=== PATIENT | female | born 1970 | race Caucasian/White ===

== ENCOUNTER 2022-04-19 11:23 | Emergency (ER) | payer OTHER, SELFPAY ==
[2022-04-19] VITALS (10 sets, daily range): BP systolic 123–150; BP diastolic 65–76; PULSE 70–89; RESP 16–24; TEMP 36.3; O2SAT 95–100; BMI 31.3
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
--- NOTE | 2022-04-19 11:51 | EKG12_ITS ---
Test Reason : Blood Pressure : / mmHG Vent. Rate : 063 BPM Atrial Rate : 063 BPM P-R Int : 164 ms QRS Dur : 094 ms QT Int : 408 ms P-R-T Axes : 014 067 017 degrees QTc Int : 417 ms Normal sinus rhythm Nonspecific ST abnormality Abnormal ECG Confirmed by JOANNE PRASAD, ALPHONSO ([id number]), story editor NATO WOODRUFF ([id number]) on 04/20/2022 9:50:19 AM Referred By: Confirmed By:ALPHONSO RUBIO MD
[2022-04-19] MEDS: LORazepam 2 MG/ML Syringe 0.5 MG IV (11:59)
[2022-04-19 12:08] LABS: Absolute Lymphocyte Count 1.11 X10^3/uL (0.83-4.51); Absolute Neutrophil Count 5.9 X10^3/uL (2.0-7.7); Basophil# 0.03 X10^3/uL; Basophil% 0.4 % (0-1); Eosinophil# 0.04 X10^3/uL; Eosinophils% 0.5 % (0-5); Hematocrit 38.7 % (37-47); Hemoglobin 13.7 g/dL (12.0-15.0); Lymphocyte # 1.11 X10^3/ul (0.83-4.51); Lymphocyte % 15.1 % (19-41); Mean Corp Hgb Conc 35.4 g/dL (32-36); Mean Corpuscular Hgb 30.9 pg (27.0-32.0); Mean Corpuscular Volume 87.2 fL (81-99); Mean Platelet Vol. 9.9 fl (6.2-12.0); Monocyte# 0.31 X10^3/uL; Monocyte% 4.2 % (0-10); NRBC Flagged by Analyzer 0 % (0-5); Neutrophil # 5.86 X10^3/uL (2.7-7.7); Neutrophil % 79.5 % (47-70); Platelet Count 213 K/mm3 (150-450); RBC Distribution Width CV 14.2 % (11.6-14.6); RBC Distribution Width SD 45.2 fl (35.1-43.9); Red Blood Count 4.44 M/mm3 (4.2-5.4); White Blood Count 7.4 K/mm3 (4.4-11.0)
[2022-04-19 12:18] LABS: Internal QC Validated? YES +Cl - CLEAR BKGD; Pregnancy, Serum, hCG Quali. NEGATIVE Negative
[2022-04-19 12:19] LABS: Amphetamine Urine VISTA NEGATIVE (<1000 ng/mL); Barbiturate Urine VISTA NEGATIVE (< 200 ng/mL); Benzodiazepine Urine VISTA NEGATIVE (< 200 ng/mL); Cocaine Urine VISTA NEGATIVE (< 300 ng/mL); Ecstacy Urine VISTA NEGATIVE (< 500 ng/mL); Methadone Urine VISTA NEGATIVE (< 300 ng/mL); PCP Urine VISTA NEGATIVE (< 25 ng/mL); THC Urine VISTA NEGATIVE (< 50 ng/mL); Vista UDS pH Range 7
[2022-04-19 12:26] LABS: Anion Gap 9 (5-15); BUN 13 mg/dL (7-18); BUN/Creat Ratio 13.4 RATIO (10-20); Calcium,Total 9.6 mg/dL (8.5-10.1); Chloride 111 mmol/L (98-107); Creatinine, Serum 0.97 mg/dL (0.55-1.02); EST Glomerular Filtration Rate 65 mL/min (>60); Est Glom Filt Rate - Afr Amer 78 mL/min (>60); Estimated Creatinine Clearance 60.58 ml/min; Glucose 107 mg/dL (74-106); Potassium 3.2 mmol/L (3.5-5.1); Sodium Level 142 mmol/L (136-145); Troponin-I HS 5 pg/mL (3.0-54.0)
[2022-04-19 12:38] LABS: Alcohol, Blood (Medical)-Serum < 3.0 mg/dL
[2022-04-19] MEDS: Potassium Chloride Oral Tablet 20 MEQ 40 MEQ PO (16:35)
[2022-04-20] VITALS (10 sets, daily range): BP systolic 117–148; BP diastolic 68–78; PULSE 65–80; RESP 14–23; O2SAT 97–100
--- NOTE | 2022-04-20 00:44 | NURSING ---
INA ALEJANDRO CALLED STATING PATIENT IS DENIED DUE TO NOT MEETING CRITERIA
--- NOTE | 2022-04-20 12:06 | ED.RN ---
gave pt her Zoloft last night @ [facility].
--- NOTE | 2022-04-20 14:03 | CM.ED ---
Addendum entered by Jennie Bustamante 04/20/22 15:12: Madhuri advised if counseling center pays for transport. KAREN advised that the transport is billed to [facility]. Of note, when KAREN spoke to Gisselle from [facility] she said that the agreement with the [facility] had been secured. No other financial issues or concerns pending. Jennie Bustamante SOPHIE DIAZ Original Note: KAREN Note KAREN called the Counseling center and spoke to Jamila Marino said that patient has been denied by [facility], [facility]illa and [facility]. Jamila said that she will talk to Nicky about patient. Patient is [facility] [place] patient. SW updated patient and . Advised her that Counseling Center is working on placement. inquired about leaving and this specifications writer explained that patient needs treatment. Patient has been at [facility] in the past. Went to counseling last week for a new counselor in [place] but can't recall the counselor's name. said that patient is doing alot better today. said that patient has slept, ate and this specifications writer noted that patient was responding to this specifications writer's questions and talking but very quietly. Nicky called this specifications writer. She said that she is updating the assessment for patient. KAREN inquired about patient going to [facility]. Nicky will call Sergio at [facility]. Nicky said that she met with the crisis counselor Helen and they updated the initial assessment. SW received call from Nicky. [facility] has no places in their residential unit for 2 weeks. Thus, Jamila from [facility] will send out referrals for patient. Nicky said that Sergio felt patient needed to be stabilized. Jamila advised that she Ezequiel is interested in the patient but needs SSN. KAREN went to get SSN but patient said that she had already given it to someone. Madhuri, ED company secretary, advised that patient gave her the SSN. KAREN received call from Gisselle at [facility]. Patient accepted. Patient is going to Adult Unit Room [facility] [address]. Accepting is Kayla and RN to RN is [phone]. Gisselle said that the RN can advise of the patient's ETA when the RN calls for report. Gisselle said that there is no visitation. Patient can bring 2-3 outfits and no pins. Gisselle said that patient could sign a voluntary. KAREN updated Florencia LIND. Florencia completed covid screen. KAREN met with patient and her and updated them. Patient signed voluntary (SW had read the voluntary to her). The said that all of the pins had been taken out of her covering and clothes. advised patient is wearing a gown and has a dress. was advised of no visitation. SW gave the brochure on [facility] with picture and numbers and also the number for Sergio at [facility]. Karen updated Madhuri company secretary that patient has been accepted at [facility]. updated. Plan: [facility] Jennie DIAZ
--- NOTE | 2022-04-20 14:43 | NURSING ---
CALLED [facility], ETA IS 30 MIN
== END 2022-04-20 15:15 ==
PROVIDERS: Emergency Provider Student in an Organized Health Care Education/Training Program; PCP Family Medicine; Visit Provider Student in an Organized Health Care Education/Training Program
DX: F23 Brief psychotic disorder (principal); F41.9 Anxiety disorder, unspecified
CPT/HCPCS: 80048; 80307; 82077; 84484; 84703; 85025; 87811; 93005; 96374; 99285; A4216

== ENCOUNTER 2025-01-22 12:28 | Emergency (ER) | payer OTHER, SELFPAY ==
[2025-01-22 12:30] VITALS: BP 135/67; PULSE 84; RESP 18; TEMP 36.9; O2SAT 100; BMI 37.5
[2025-01-22 13:10] VITALS: O2SAT 100
--- NOTE | 2025-01-22 13:10 | EKG12_ITS ---
Test Reason : Blood Pressure : */* mmHG Vent. Rate : 84 BPM Atrial Rate : 84 BPM P-R Int : 162 ms QRS Dur : 94 ms QT Int : 384 ms P-R-T Axes : 6 54 0 degrees QTcB Int : 453 ms Normal sinus rhythm Nonspecific ST abnormality Abnormal ECG Confirmed by Abel Matthews ([id number]), assistant production editor NATO WOODRUFF ([id number]) on 01/24/2025 6:10:58 AM Referred By: Confirmed By: Abel Matthews
--- NOTE | 2025-01-22 13:10 | RAD_ITS ---
PROCEDURE: CHEST 1 VIEW (PORTABLE) 01/22/2025 REASON FOR EXAM: CHEST PAIN TECHNIQUE: Frontal view of the chest. COMPARISON: None FINDINGS: Hardware: EKG electrodes are seen. Prior fusion in the lower cervical spine. Heart: Cardiac and mediastinal contours are stable. Lungs: The lungs are clear. Bones: Degenerative changes are identified within the thoracic spine. Other: RAD/Chest 1 View (Portable) IMPRESSION: No Acute Findings. Reading Location: [place] [id number]
--- NOTE | 2025-01-22 13:16 | ED.VIS.CHEST ---
HPI History of Present Illness Chief Complaint: Chest Pain Informant: patient and spouse/S.O. Onset/Context/Timing Onset: Today and Hours Activity at onset: gradual Timing: Continuous Quality: Positive for Aching and Pain Location: Left Chest Current Severity: Mild Maximum Severity: Mild Worsened By: Exertion Relieved By: Nothing Associated Symptoms: Positive for Dyspnea and Lightheadedness; Negative for Nausea, Vomiting, Cough, Fever, Acid Reflux or Palpitations Narrative Narrative: 54-year-old female history depression. No cardiac history. Was picking strawberries today and had chest pain. States this has been going on for the last hour. States she has had increased fatigue. Pain goes into her left arm. She has had some mild shortness of breath. No history of DVT or PE. No recent travel surgery immobilization. No calf pain or swelling. No hemoptysis. No significant family history of cardiac disease other than her mom at 78. Patient is had no prior cardiac testing. Prior Similar Symptoms: No Recent Illness/Hospitalization: No CVD Risk Factors: Negative for Hypertension, Diabetes, Hypercholesterolemia, Family History 1' </=55 or Smoking PE Risk Factors: Negative for Recent Travel/Surgery, Recent Immobilization, Prior DVT or PE, Cancer or OCP + Smoking + >/=35 TAD Risk Factors: Negative for Marfan's Syndrome PFSH PFS Home Medications ?Medication ?Instructions ?Recorded ?Last Taken ?Type sertraline 50 mg tablet 50 mg PO QHS 04/19/22 Unknown History Allergy/AdvReac Type Severity Reaction Status Date / Time No Known Allergies Allergy Verified 01/22/25 12:33 Surgical History Previous back surgery Social History Smoking Status: Never smoker ROS ROS ED ROS Narrative Chest discomfort today picking strawberries. Dyspneic. Constitutional Constitutional ED: Denies chills or fever(s) Eyes Eyes: Reports none ENT ENT ED: Denies ear pain Cardiovascular Cardiovascular: Reports as per HPI and chest pain; Denies palpitations or racing heartbeat Respiratory/Chest Respiratory/Chest: Reports dyspnea Gastrointestinal Gastrointestinal: Denies abdominal pain Genitourinary Genitourinary ED: Denies dysuria or hematuria Musculoskeletal Musculoskeletal: Denies arthralgias Integumentary Denies abscess or Abrasions Neurologic Neurologic: Denies headache(s) Psychiatric Psychiatric: Denies anxiety or depression Endocrine Endocrinology: Denies cold intolerance Hematologic/Lymphatic Hematologic/Lymphatic: Denies easy bleeding, easy bruising or lymphadenopathy Allergic/Immunologic Allergic/Immunologic ED: Denies mouth swelling, tongue swelling or urticaria EXAM Physical Exam Narrative Exam Narrative: 54-year-old female sitting upright in bed. Vital signs stable afebrile. Pulse ox 100% on room air no hypoxia. at bedside. H EENT exam pupils round react light. Moist mucous membranes. No trauma. Neck nontender no JVD. No lymphadenopathy. Lungs clear to auscultation bilaterally. Heart regular rhythm no murmur. Chest wall and ribs are nontender. Heart rate about 80. Abdomen soft nondistended normal bowel sounds without peritoneal signs. She has mild left upper quadrant tenderness. No rebound guarding rigidity. No hernia or mass. Right upper quadrant unremarkable. Soft. Positive bowel sounds. Moving all 4 extremities. 5-5 cooker process cheese strength. Dorsi plantarflexion intact. Calves are nontender without edema or cords. Equal symmetric radial pulses. Back nontender. Neurologically patient awake alert. Answering questions following commands. No focal motor deficits. Const Vital Signs: 01/22/25 12:30 01/22/25 13:10 01/22/25 13:29 Temperature 98.4 F Temperature Source Oral Pulse Rate 84 71 Respiratory Rate 18 15 Blood Pressure 135/67 H Blood Pressure Mean 89 Pulse Ox 100 100 100 Oxygen Delivery Method Room Air Room Air Room Air 01/22/25 14:00 01/22/25 15:00 Temperature Temperature Source Pulse Rate 69 74 Respiratory Rate 13 15 Blood Pressure Blood Pressure Mean Pulse Ox 98 99 Oxygen Delivery Method Room Air Room Air Positive well nourished and well developed; Negative for cachectic, contractures or unkempt General Appearance ED: well developed and NAD; Negative for unkempt, cachectic, contractures or pallor Nutritional Appearance: Negative for cachectic HEENT Reports moist mucous membranes normocephalic and atraumatic; Negative for trauma or tenderness Eyes EOMs intact bilaterally General Eye ED: Negative for pale conjunctiva or scleral icterus Neck no lymphadenopathy, supple and no JVD General: Negative for tenderness Chest Wall inspection of chest normal and palpation of chest normal Chest: Negative for tenderness Resp normal respiratory effort and clear to auscultation bilaterally Effort and Inspection: Negative for respiratory distress Auscultation: Negative for rales, rhonchi, wheezes or diminished lung sounds Cardio regular rate, regular rhythm, S1 normal heart sound, S2 normal heart sound and no murmurs Peripheral Pulses: pulses 2+ throughout GI normal to inspection, nondistended, normoactive bowel sounds, soft to palpation, non-tender, non-distended and no masses Back/Spine no CVA tenderness and no thoracic nor lumbar tenderness General Back: Negative for CVA tenderness Cervical Spine: Negative for cervical spine tenderness Extremity normal to inspection General Extremety ED: Negative for edema, pulses abnormal or tenderness General Extremity: Negative for edema or pulses abnormal Neuro oriented x3 and CN's II-XII intact bilaterally Sensorium / Orientation: awake, alert, oriented to person, oriented to place and oriented to time; Negative for confused, lethargic or stuporous Motor Exam: strength 5/5 throughout; Negative for general weakness or strength abnormal Psych mental status grossly normal Appearance: Negative for unkempt Attitude: No agitated Mood & Affect: Negative for depressed, anxious or tearful Skin no rashes or lesions noted and no wounds General Skin Exam: Negative for jaundice or pallor Rashes: No rashes noted Trauma: Negative for abrasion, laceration or puncture MDM MDM MDM Narrative Medical decision making narrative: 54-year-old female with chest discomfort today while picking strawberries. No cardiac history. No DVT or PE history or risk factors. No prior cardiac workup. She is never had a stress test or heart cath. She undergo a cardiac workup today. Repeat exam patient is doing well at 3:33 PM. 2-hour troponin returned it was less than 6. The initial was 6. Patient be discharged home with outpatient follow-up for further evaluation. The shoulder pain she is having is reproducible and appears to be musculoskeletal. History & Record Review Discussion w/independent historian: Patient Lab Data Attestation: I reviewed the patient's lab results. Lab results narrative: CBC shows a white count 8.9. H&H 12 and 36. Platelets 256. Electrolytes show sodium 138 gap 13. Normal BUN of 9 creatinine 0.8. Glucose 101. Liver enzymes normal. Lipase 23. Initial troponin 6. 2-hour troponin less than 6. Labs: Laboratory Results - last 24 hr 01/22/25 01/22/25 13:15 15:09 WBC 8.9 RBC 4.15 L Hgb 12.4 Hct 36.3 L MCV 87.5 MCH 29.9 MCHC 34.2 RDW Std Deviation 43.4 RDW Coeff of Karie 13.6 Plt Count 256 MPV 9.5 Immature Gran % (Auto) 0.300 Neut % (Auto) 75.8 H Lymph % (Auto) 17.0 L Saunders % (Auto) 5.8 Eos % (Auto) 0.9 Baso % (Auto) 0.2 Absolute Neuts (auto) 6.8 Absolute Lymphs (auto) 1.52 Nucleated RBC % 0 Sodium 138 Potassium 3.4 Chloride 103 Carbon Dioxide 22.7 Anion Gap 13 BUN 9 Creatinine 0.85 Estim Creat Clear Calc 88.61 Est GFR (MDRD) Non-Af 82 BUN/Creatinine Ratio 10.6 Glucose 101 H Calcium 9.2 Total Bilirubin 0.49 Direct Bilirubin 0.20 AST 15 ALT 9 Alkaline Phosphatase 63 Troponin T High Sens 6 Troponin T Hi Sens 2 Hr < 6 Total Protein 7.3 Albumin 3.7 Globulin 3.6 Lipase 23 Radiography Chest X-Ray - ED: 1 View, Read by ED Physician, Read by Radiologist, Normal, Heart, Lungs, Mediastinum, Bony Structures, No Acute Disease and Chronic Changes Diagnostic Testing: Clinical Impression(s) from Imaging Studies Chest X-Ray 01/22/25 13:10 IMPRESSION: No Acute Findings. Reading Location: [place] [id number] Chest x-ray, portable, single view, interpreted by myself and radiologist shows no acute abnormality. Normal cardiac silhouette. Normal mediastinum. Normal lung handy. No acute process. Rhythm Strip Rhythm Strip: Sinus Rhythm Rate: 84 Ectopy: None EKG Initial EKG: Attestation: I personally reviewed and interpreted this EKG as follows: Interpretation: Sinus Rhythm Comments: Normal sinus rhythm rate 84. Nonspecific ST depression in V4 5 and 6. However that is unchanged from prior EKG from April 2022 Prior EKG tracings: available for review Prior: Unchanged Discharge Plan Triage Chief Complaint: Chest Pain ED Provider: Ramón Lee Dx/Rx/DC Orders Clinical Impression: Atypical chest pain Instructions: ED Chest Pain, Uncertain Cause Prescriptions: No Action sertraline 50 mg Tablet 50 mg PO QHS Primary Care Provider: Agatha Avendano NP Referrals: Agatha Avendano NP, [facility] [Primary Care Provider] - As soon as possible Activity Restrictions/Additional Instructions: Follow-up with your primary care provider. Discuss with them getting an outpatient stress test to further evaluate your heart. Your labs today were normal. Print Language: Kazakh Disposition Disposition: Home, Self Care
[2025-01-22 13:26] LABS: Absolute Lymphocyte Count 1.52 X10^3/uL (0.83-4.51); Absolute Neutrophil Count 6.8 X10^3/uL (2.0-7.7); Basophil# 0.02 X10^3/uL; Basophil% 0.2 % (0-1); Eosinophil# 0.08 X10^3/uL; Eosinophils% 0.9 % (0-5); Hematocrit 36.3 % (37-47); Hemoglobin 12.4 g/dL (12.0-15.0); Lymphocyte # 1.52 X10^3/ul (0.83-4.51); Mean Corp Hgb Conc 34.2 g/dL (32-36); Mean Corpuscular Hgb 29.9 pg (27.0-32.0); Mean Corpuscular Volume 87.5 fL (81-99); Mean Platelet Vol. 9.5 fl (6.2-12.0); Monocyte# 0.52 X10^3/uL; Monocyte% 5.8 % (0-10); NRBC Flagged by Analyzer 0 % (0-5); Neutrophil # 6.75 X10^3/uL (2.7-7.7); Neutrophil % 75.8 % (47-70); Platelet Count 256 K/mm3 (150-450); RBC Distribution Width CV 13.6 % (11.6-14.6); RBC Distribution Width SD 43.4 fl (35.1-43.9); Red Blood Count 4.15 M/mm3 (4.2-5.4); White Blood Count 8.9 K/mm3 (4.4-11.0)
[2025-01-22 13:29] VITALS: PULSE 71; RESP 15; O2SAT 100
[2025-01-22 13:58] LABS: AST(SGOT) 15 U/L (<=31); Alanine Aminotransfer ALT/SGPT 9 U/L (<=34); Albumin, Serum 3.7 g/dL (3.5-5.0); Alkaline Phosphatase 63 U/L (35-104); Anion Gap 13 (5-15); BUN 9 mg/dL (4-19); BUN/Creat Ratio 10.6 RATIO (10-20); Calcium,Total 9.2 mg/dL (7.6-11.0); Carbon Dioxide 22.7 mmol/L (21.0-32.0); Chloride 103 mmol/L (98-108); Creatinine, Serum 0.85 mg/dL (0.70-1.20); EST Glomerular Filtration Rate 82 (>60); Estimated Creatinine Clearance 88.61 ml/min (50-250); Globulin 3.6 g/dL (2.2-4.2); Glucose 101 mg/dL (70-99); Lipase 23 U/L (13-75); Potassium 3.4 mmol/L (3.3-5.1); Protein, Total 7.3 g/dL (5.9-8.4); Sodium Level 138 mmol/L (133-145); Total Bilirubin 0.49 mg/dL (0.00-1.30); Troponin T High Sensitivity 6 ng/L (<=14)
[2025-01-22 14:00] VITALS: PULSE 69; RESP 13; O2SAT 98
[2025-01-22 15:00] VITALS: PULSE 74; RESP 15; O2SAT 99
[2025-01-22 15:40] LABS: Troponin T High Sens 2 HR < 6 ng/L (<=14)
[2025-01-22 15:53] VITALS: BP 135/67; PULSE 74; RESP 15; TEMP 36.9; O2SAT 99
--- OUTSIDE RECORDS SUMMARY | 2025-01-22 23:43 | XMS RPT_ITS | CCD ---
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 [facility] Work Phone: Cocaine Ql (U) Negative < 300 ng/mL [facility] Work Phone: Opiates Ql (U) Negative < 300 ng/mL [facility] Work Phone: Laboratory - Hematology and Cell countson 04-19-2022 Erythrocyte distribution width (RBC) [Entitic vol] 45.2 fL 35.1-43.9 [facility] Work Phone: Immature granulocytes/100 WBC (Bld) 0.300 % 0.0-0.9 [facility] Work Phone: Comment on above: IG% - Immature Granu locytes (promyelocytes, myelocytes and metamyelocytes) > 1% indicates that a LEFT SHIFT is Present. Nucleated RBC/100 WBC (Bld) [Ratio] 0 % 0-5 [facility] Work Phone: MCHC [Mass/volume] by Automa festus counton 04-19-2022 MCHC (RBC) [Mass/Vol] 35.4 g/dL Normal 32-36 [facility] Work Phone: Comment on above: Performed By: #### L 500.2500, L700.6800, L501.4020, L501.9100, L505.5000, L100.0100 #### [facility] [address] [place], [place], [id number] No Panel Informationon 04-19 Estimated Creatinine Clearance Calc 60.58 ml/min [facility] Work Phone: Estimated GFR (MDRD) Amer 78 mL/min >60 [facility] Work Phone: Comment on above: GFR Calc Estimated GFR (MDRD) Non-Af Amer 65 mL/min >60 [facility] Work Phone: Comment on above: Non- GFR Calc Ethyl Alcohol Level < 3.0 mg/dL [facility] Work Phone: Comment on above: The serum:whole bloo d ethanol ratio is approximately 1.14and varies slightly with hematocrit. Medical Alcohol reference interval and critical value innon-tolerant individuals; 50 - 100 Impairment 100 Intoxication 100 - 250 Severe Poisoning 250 - 400 Deep/possible fatal coma Troponin I High Sensitivity 5 pg/mL 3.0-54.0 [facility] Work Phone: Comment on above: Please Note: New [place] t Units and Gender Specific Reference Ranges. For more information see Policy Stat Procedure [place] High Sensitivity Troponin (TNIH) and attachments. MDMA (Ecstasy) Screen Negative < 500 ng/mL [facility] Work Phone: Urine Barbiturates Screen Negative < 200 ng/mL [facility] Work Phone: Urine Drug Screen Comment [facility] Work Phone: Comment on above: CONFIRMATORY TESTING FOR ALL POSITIVE URINE DRUG SCREENRESULTS WILL ONLY BE SENT OUT UPON PHYSICIAN ORDER. VISTA Urine Drug Screen methods provide only preliminaryanalytical test results. A more specific alternate chemicalmethod must be used in order to obtain a confirmedanalytical result. Gas chromatography/mass spectrometery(GC/MS) is the preferred confirmatory method. Clinicalconsideration and professional judgement should be appliedto any drug of abuse test result, particularly whenpreliminary positive results are used. URINE TCA TESTING MUST BE ORDERED SEPARATELY. USE TESTMNEMONIC: [facility] Urine Methadone Screen Negative < 300 ng/mL [facility] Work Phone: Platelets bldon 04-19-2022 Platelets (Bld) [#/Vol] 213 10*3/uL Normal 150-450 [facility] Work Phone: Comment on above: Performed By: #### L 500.2500, L700.6800, L501.4020, L501.9100, L505.5000, L100.0100 #### [facility] [address] [place], [address] ,Serum,hCG Quali.on 04-19-2022 HCG, SERUM QUAL Negative Normal [facility] Comment on above: Performed By: #### L 500.2500, L700.6800, L501.4020, L501.9100, L505.5000, L100.0100 #### [facility] [address] [place], [address] Serum or plasma calcium shelly urement (mass/volume)on 04-19-2022 Calcium [Mass/Vol] 9.6 mg/dL 8.5-10.1 [facility] Work Phone: Serum or plasma creatinine m easurement (mass/volume)on 04-19-2022 Creatinine [Mass/Vol] 0.97 mg/dL Normal 0.55-1.02 [facility] Work Phone: Comment on above: The validity of the calculated GFR & GFRAA in patients over 70 years has not been determined. Clinical correlation is essential. Order Comment: 'TROP ' Serial specimen #1, #2 or #3: 1 Result Comment: The validity of the calculated GFR GFRAA in patients over 70 years has not been determined. Clinical correlation is essential. Performed By: #### L 500.2500, L700.6800, L501.4020, L501.9100, L505.5000, L100.0100 #### [facility] [address] [place], [address] Serum or plasma urea nitroge n measurement (mass/volume)on 04-19-2022 Urea nitrogen [Mass/Vol] 13 mg/dL Normal 7-18 [facility] Work Phone: Comment on above: Order Comment: 'TROP ' Serial specimen #1, #2 or #3: 1 Performed By: #### L 500.2500, L700.6800, L501.4020, L501.9100, L505.5000, L100.0100 #### [facility] [address] [place], [address] Thin prep Papanicolaou smear with manual screeningon 04-19-2022 Thin prep Papanicolaou smear with manual screening 9 5-15 [facility] Work Phone: Urine Drug Screen (VISTA)on 04-19-2022 AMPHETAMINES Negative Normal <1000 ng/mL [facility] Comment on above: Performed By: #### L 500.2500, L700.6800, L501.4020, L501.9100, L505.5000, L100.0100 #### [facility] [address] [place], [facility] BARBITIURATES Negative Normal < 200 ng/mL [facility] Comment on above: Performed By: #### L 500.2500, L700.6800, L501.4020, L501.9100, L505.5000, L100.0100 #### [facility] [address] [place] [address] BENZODIAZIPINE Negative Normal < 200 ng/mL [facility] Comment on above: Performed By: #### L 500.2500, L700.6800, L501.4020, L501.9100, L505.5000, L100.0100 #### [facility] [address] [place], [place], [facility] COCAINE Negative Normal < 300 ng/mL [facility] Comment on above: Performed By: #### L 500.2500, L700.6800, L501.4020, L501.9100, L505.5000, L100.0100 #### [facility] [address] [place], [facility] ECSTACY Negative Normal < 500 ng/mL [facility] Comment on above: Performed By: #### L 500.2500, L700.6800, L501.4020, L501.9100, L505.5000, L100.0100 #### [facility] [address] [place] [address] METHADONE Negative Normal < 300 ng/mL [facility] Comment on above: Performed By: #### L 500.2500, L700.6800, L501.4020, L501.9100, L505.5000, L100.0100 #### [facility] [address] [place] [address] OPIATES Negative Normal < 300 ng/mL [facility] Comment on above: Performed By: #### L 500.2500, L700.6800, L501.4020, L501.9100, L505.5000, L100.0100 #### [facility] [address] [place], [address] PCP Negative Normal < 25 ng/mL [facility] Comment on above: Performed By: #### L 500.2500, L700.6800, L501.4020, L501.9100, L505.5000, L100.0100 #### [facility] [address] [place], [address] THC Negative Normal < 50 ng/mL [facility] Comment on above: Performed By: #### L 500.2500, L700.6800, L501.4020, L501.9100, L505.5000, L100.0100 #### [facility] [address] [place], [address] VISTA UDS PH 7 Normal [facility] Comment on above: Performed By: #### L 500.2500, L700.6800, L501.4020, L501.9100, L505.5000, L100.0100 #### [facility] [address] [place], [address] Urine phencyclidine (PCP) de tectionon 04-19-2022 Phencyclidine Ql (U) Negative < 25 ng/mL [facility] Work Phone: Internal Med Progress Noteon 07-23-2020 Internal Med Progress Note [facility] Patient: JAVAD MARTINEZ [address] [place] [id number] MR#: [id number] PROGRESS NOTE - Internal Medicine : 74 Service Date: 07/23/20 0744 Assessment/Plan-Internal Med Be sure to note changes Be sure to note changes Electronically Signed eSign Date and Time Jorje Noyola RES Normal [facility] Anesthesia Noteon 07-22-2020 Anesthesia Note [facility] Patient: JAVAD MARTINEZ [address] [place], [place] [id number] MR#: [id number] ANESTHESIA NOTE : Service Date: 07/22/20757 Post-anesthesia Note Note Patient assessed post operatively for the following: [x ] Respiratory function, including respiratory rate, airway patency and oxygen saturation [x ] Cardiovascular function, including pulse rate and blood pressure [x ] Mental status [x ] Temperature [x ] Pain [x ] Nausea and vomiting [x ] Postoperative hydration [x ] No Visual Changes Due to the following condition(s) additional monitoring may be necessary: [ ] [x ] No apparent anesthesia complications noted. [x ] Status as per pre-op Electronically Signed eSign Date and Time Rosetta Dickey 07/22/20 0759 Yelena Jimenez MD Normal [facility] BASIC MET PANELon 07-22-2020 Anion gap [Moles/Vol] 12 mmol/L Normal 6-18 [facility] Comment on above: Performed By: #### L 500.16161, L500.73015 #### Test performed at: [address] [address] Calcium [Mass/Vol] 9.1 mg/dL Normal 8.5-10.1 [facility] Comment on above: Performed By: #### L 500.38151, L500.67524 #### Test performed at: [address] [address] Chloride [Moles/Vol] 107 mmol/L Normal 98-107 [facility] Comment on above: Performed By: #### L 500.57540, L500.60248 #### Test performed at: [place] [id number] CO2 [Moles/Vol] 26 mmol/L Normal 21-32 [facility] Comment on above: Performed By: #### L 500.43480, L500.71665 #### Test performed at: [address] [address] Creatinine [Mass/Vol] 0.925 mg/dL Normal 0.550-1.020 [facility] Comment on above: Performed By: #### L 500.98455, L500.65971 #### Test performed at: [address] [address] Glucose [Mass/Vol] 142 mg/dL High 70-99 [facility] Comment on above: Result Comment: Fast ing GLUCOSE reference range has been updated per (ADA) [place] [employer]'s recommendation. 11/07/2018 Performed By: #### L 500.72654, L500.63531 #### Test performed at: [address] [address] OSM 293 mosm/kg Normal 270-300 [facility] Comment on above: Performed By: #### L 500.49238, L500.38614 #### Test performed at: [address] [address] Potassium [Moles/Vol] 3.8 mmol/L Normal 3.5-5.1 [facility] Comment on above: Performed By: #### L 500.00688, L500.30702 #### Test performed at: [address] [address] Sodium [Moles/Vol] 141 mmol/L Normal 136-145 [facility] Comment on above: Performed By: #### L 500.75785, L500.51708 #### Test performed at: [address] [address] Urea nitrogen [Mass/Vol] 9 mg/dL Normal 7-18 [facility] Comment on above: Performed By: #### L 500.69217, L500.90383 #### Test performed at: [address] [address] CBC W/DIFFon 07-22-2020 BASO ABS 0.0 K/uL Normal 0.0-0.2 [facility] Comment on above: Performed By: #### L 200.17245 #### Test performed at: [address] [address] Basophils/100 WBC (Bld) 0.1 % Normal [facility] Comment on above: Performed By: #### L 200.66832 #### Test performed at: [address] [address] EOS ABS 0.0 K/uL Normal 0.0-0.5 [facility] Comment on above: Performed By: #### L 200.36251 #### Test performed at: [address] [address] Eosinophils/100 WBC (Bld) 0.0 % Normal [facility] Comment on above: Performed By: #### L 200.92314 #### Test performed at: [address] [address] Erythrocyte distribution width (RBC) [Ratio] 13.5 % Normal 11.5-14.5 [facility] Comment on above: Performed By: #### L 200.05714 #### Test performed at: [address] [address] Hematocrit (Bld) [Volume fraction] 38.6 % Normal 36.0-48.0 [facility] Comment on above: Performed By: #### L 200.66216 #### Test performed at: [address] [address] Hemoglobin (Bld) [Mass/Vol] 13.0 g/dL Normal 12.0-15.0 [facility] Comment on above: Performed By: #### L 200.43376 #### Test performed at: [address] [address] IG % 0.6 % Normal [facility] Comment on above: Performed By: #### L 200.60121 #### Test performed at: [address] [address] IG ABS 0.11 K/uL High 0-0.05 [facility] Comment on above: Performed By: #### L 200.47006 #### Test performed at: [address] [address] Lymphocytes (Bld) [#/Vol] 1.3 10*3/uL Normal 1.2-3.5 [facility] Comment on above: Performed By: #### L 200.06122 #### Test performed at: [place] [id number] Lymphocytes/100 WBC (Bld) 6.9 % Normal [facility] Comment on above: Performed By: #### L 200.58107 #### Test performed at: [address] [address] MCH (RBC) [Entitic mass] 30.1 pg Normal 25.4-34.6 [facility] Comment on above: Performed By: #### L 200.23337 #### Test performed at: [address] [address] MCHC (RBC) [Mass/Vol] 33.7 g/dL Normal 31.5-36.5 [facility] Comment on above: Performed By: #### L 200.41598 #### Test performed at: [address] [address] MCV (RBC) [Entitic vol] 89.4 fL Normal 79.0-98.0 [facility] Comment on above: Performed By: #### L 200.67316 #### Test performed at: [address] [address] MONO ABS 0.5 K/uL Normal 0.0-1.0 [facility] Comment on above: Performed By: #### L 200.77679 #### Test performed at: [place] [id number] Monocytes/100 WBC (Bld) 2.5 % Normal [facility] Comment on above: Performed By: #### L 200.19816 #### Test performed at: [place] [address] NEUTROPHIL ABS 16.3 K/uL High 1.4-6.6 [facility] Comment on above: Performed By: #### L 200.50787 #### Test performed at: [place] [id number] Neutrophils/100 WBC (Bld) 89.9 % Normal [facility] Comment on above: Performed By: #### L 200.95048 #### Test performed at: [place] [id number] NRBC # 0.000 K/uL Normal 0-0.012 [facility] Comment on above: Performed By: #### L 200.95745 #### Test performed at: [address] [address] NRBC % 0.0 /100 WBC Normal 0-0.2 [facility] Comment on above: Performed By: #### L 200.01540 #### Test performed at: [address] [address] Platelet mean volume (Bld) [Entitic vol] 9.3 fL Normal 8.7-12.4 [facility] Comment on above: Performed By: #### L 200.27171 #### Test performed at: [address] [address] Platelets (Bld) [#/Vol] 266 10*3/uL Normal 140-440 [facility] Comment on above: Performed By: #### L 200.68124 #### Test performed at: [address] [address] RBC (Bld) [#/Vol] 4.32 10*6/uL Normal 3.5-5.5 [facility] Comment on above: Performed By: #### L 200.00152 #### Test performed at: [place] [id number] WBC (Bld) [#/Vol] 18.2 10*3/uL High 3.9-11.0 [facility] Comment on above: Performed By: #### L 200.54881 #### Test performed at: [place] [address] Discharge CCD Assessmenton 1 09-22-2019 Discharge CCD Assessment [facility] Patient: JAVAD MARTINEZ [address] [place] [address] MR#: [id number] DISCHARGE CCD ASSESSMENT : 74 Service Date: 07/22/20 1012 Discharge CCD Assessment Assessment Patient discharged home to continue home therapy exercises, pain control, wound care and ambulation Electronically Signed eSi Date and Time Kirsten Boyle 07/22/20 1013 Jadiel England Normal [facility] GFR ESTIMATEon 07-22-2020 IF AMER > 60 Normal > 60 [facility] Comment on above: Result Comment: eGFR (Estimated GFR) Units of measure:mL/min/1.73 meters sq. *CALCULATION REVISED 06/03/2015;IDMS-traceable MDRD equation eGFR is derived from the reexpressed MDRD Study equation using the following parameters: serum creatinine, age, gender and race. An eGFR<60 mL/min/1.73m2 for >3 months is consistent with chronic kidney disease. Refer to KDOQI guidelines for clinical interpretation. Performed By: #### L 500.35098, L500.61421 #### Test performed at: [place] [address] IF non-AFR AMER > 60 Normal > 60 [facility] Comment on above: Performed By: #### L 500.26589, L500.60706 #### Test performed at: [place] [address] Internal Med Progress Noteon 07-22-2020 Internal Med Progress Note [facility] Patient: JAVAD MARTINEZ [address] [place] [address] MR#: [id number] PROGRESS NOTE - Internal Medicine : 74 Service Date: 07/22/20746 Subjective Primary Resident: Urbano Noyola After Hours Call: [phone] Red Team Summary of Stay 50 yr old Female with PMHx OA POD 0 ADR C6 C7. Seen and examined in PACU. She is vitally stable saturating well on RA, BP 145/80. She denies upper extremity numbness, weakness, snd tingling. She denies chest pain or shortness of breath. She is alert and oriented with GAEB CTA GBAE, normal S1 S2 no sensory or motor deficits. Collar neck in place. Her corrales was removed this morning. The drain is still in place, serosanguinous content. Events since last encounter uneventful Subjective Patient is seen and examined this morning. She is vitally stable. was able to tolerate the clears without dysphagia. She denies odynophagia. Her corrales was removed this morning. Drain in place. Objective Exam Vitals and I/O Vital Signs Verdana 4d Result Date Time Pulse Ox 93 07/22 825 B/P 138/74 07/22 825 O2 Delivery ROOM AIR 07/22 825 Temp 36.4 07/22 825 Pulse 86 07/22 825 Resp 16 07/22 825 O2 Flow Rate 2 07/21 1553 Intake AND Output Verdana 4d 12/08 2300 12/07 2300 Intake Total 687 1514 Output Total 1452 2300 Balance -765 -786 Intake, IV 687 594 Oral 0 920 utput, 2 0 rainage Output, Urine 1450 2300 Patient 106 kg eight Weight PATIENT STATES easurement ethod General Appearance Alert, Oriented X3, Cooperative HEENT Atraumatic, PERRLA, EOMI, Mucous Membr. moist/pink Lungs Clear to Auscultation, Normal Air Movement Neck Supple, No JVD Cardiovascular Regular Rate, Normal S1, Normal S2, No Murmurs, No Gallops, No Rubs Abdomen Normal Bowel Sounds, Soft, No Tenderness Extremities No Clubbing, No Cyanosis Neurological Normal Speech, Normal Tone, Sensation Intact, Cranial Nerves 3-12 NL, Reflexes 2+ Psych/Mental Status Mental Status NL Assessment/Plan-Internal Med Med Reasons/Tx for Con't stay Perioperative Management Assessment #POD 1 ADR - EBL 300cc -VSS -Complains of some pain at the cervical region -No chest pain, no sob, no wheezes. PE: motor and sensory exam acceptable upper extremity -Drain, corrales in place -She is on Ferratab 325 mg PO BID. Plan: Analgesia:percocet Antiemetics: zofran Incentive spirometry Early Ambulation /PT Labs are pending for this morning #OA #Bowel Care #DVT prophylaxis Ambulation Update: [place] [id number] to follow up Be sure to note changes Be sure to note changes DVT Prophylaxis Ambulation *Attending Attestation Attending Attestation Attending Attestation All pertinent elements of history and physical exam were confirmed by me. Agree with above documentation. patient is medically stable Electronically Signed eSign Date and Time Jorje Noyola RES Juan A Yates RES, Katarzyna MD 07/22/20 1238 Normal [facility] OT Therapy Recommendationson 07-22-2020 OT Therapy Recommendations [facility] Patient: JAVAD MARTINEZ [address] [place] [address] MR#: [id number] OT THERAPY RECOMMENDATIONS : 74 Service Date: 07/22/20 1615 Therapy Recommendations Therapy Recommendations Recommendations HOME WITH FAMILY ASSIST Electronically Signed eSign Date and Time Richa Cuellar ANDREAS 07/22/20 1615 Normal [facility] Orthopedic Progress Noteon 1 09-22-2019 Orthopedic Progress Note [facility] Patient: JAVAD MARTINEZ [address] [place] [id number] MR#: [id number] PROGRESS NOTE - Orthopedic : 74 Service Date: 07/22/20 1111 See Addendum Verdana 4d Subjective Summary of Stay POD #1 Subjective PLEASANT. PT STATES HER RT ARM FEELS BETTER, THUMB AND INDEX FINGER NUMB WAS PRE OP General Fatigue, Appetite, Denies Chills, Denies Night sweats, Denies Malaise HEENT Denies Head Aches, Denies Visual Changes, Denies Eye Pain, Denies Ear Pain, Denies Dysphasia, Denies Sinus Congestion, Denies Post Nasal Drip, Denies Sore Throat Pulmonary Denies Dyspnea, Denies Cough Cardiovascular Denies Chest Pain, Denies Palpitations, Denies Edema, Denies Lt Headedness Gastrointestinal Denies Nausea, Denies Vomiting Musculoskeletal Neck Pain Neurological Denies Weakness, Denies Numbness Objective Exam Vitals and I/O Vital Signs Verdana 4d Result Date Time Pulse Ox 93 07/22 825 B/P 138/74 07/22 825 O2 Delivery ROOM AIR 07/22 825 Temp 36.4 07/22 08 Pulse 86 07/22 08 Resp 16 07/22 08 O2 Flow Rate 2 07/21 1553 Intake AND Output Verdana 4d 07/22 2300 07/21 2300 Intake Total 687 1514 Output Total 1452 2300 Balance -765 -786 Intake, IV 687 594 Oral 0 920 utput, 2 0 rainage Output, Urine 1450 2300 Patient 106 kg eight Weight PATIENT STATES easurement ethod General Appearance Alert, Oriented X3, Cooperative Abdomen Soft Extremities No Edema, Normal Pulses Neurological Normal Speech, Strength at 5/5 X4 Ext, Normal Tone, Sensation Intact Other Physical Findings ANTER NECK DRESSING REMOVED. DENICE BULB DRAIN REMOVED INTACT. HARD COLLAR ON. PT'S VOICE QUALITY GOOD, SHE DENIES DIFF SWALLOWING OR A SORE THROAT. HG EQUALLY STRONG BILAT, ARM STRENGTH GOOD. PT ABLE TO PLANTAR AND DORSI FLEX WITH GOOD STRENGTH. Results Results All Laboratory Tests 07/22 909 Chemistry Sodium (136 - 145 mmol/L) 141 Potassium (3.5 - 5.1 mmol/L) 3.8 Chloride (98 - 107 mmol/L) 107 Carbon Dioxide (21 - 32 mmol/L) 26 BUN (7 - 18 mg/dL) 9 mg/dL) 0.925 Est GFR ( Amer) (> 60) > 60 Est GFR (Non-Af Amer) (> 60) > 60 Glucose (70 - 99 mg/dL) 142 Hematology WBC (3.9 - 11.0 K/uL) 18.2 Hgb (12.0 - 15.0 g/dL) 13.0 Hct (36.0 - 48.0 %) 38.6 Plt Count (140 - 440 K/uL) 266 Neut % (Auto) (%) 89.9 Assessment and Plan - ICD10 Problem List 1. S/P cervical discectomy Med Reasons/Tx for Con't stay DISCHARGE Assessment PLAN OF CARE PER DR ENGLAND DISCHARGE HOME AFTER PT\OT SESSION TODAY INSTRUCTIONS REVIEWED AND DISCUSSED, PT VERBALIZES GOOD UNDERSTANDING. F\U DR ENGLAND OFFICE SCHEDULED 08/01/20, ANA CRISTINA OFFICE RX: PERCOCET 5/325 MG PO SOMA 350 MG PO ADDENDUM: AMBER HEARD M on 07/22/20 at 1154 Addendum Add DERMABOND PRINEO INTACT TO ANTER NECK INCISION, NO EDEMA,DRAINAGE OR REDNESS. Electronically Signed eSign Date and Time Amber Heard RN 07/22/20 1154 Jadiel England [facility] PT Therapy Recommendationson 07-22-2020 aPTT Coag (Bld) [Time] [facility] Patient: JAVAD MARTINEZ [address] [place] [address] MR#: [id number] PT THERAPY RECOMMENDATIONS : 74 Service Date: 07/22/20 1325 Therapy Recommendations Therapy Recommendations Recommendations PT EVAL COMPLETED. DC RECOMMENDATION: HOME WITH FAMILY ASST. Electronically Signed eSign Date and Time Estefany Chatterjee PT 07/22/20 1325 Normal [facility] z OT Inpatient Discharge Not [place] 07-22-2020 z OT Inpatient Discharge Note [facility] Patient: JAVAD MARTINEZ [address] [address] MR#: [id number] OT INPATIENT DISCHARGE NOTE : 74 Service Date: 07/22/20 1615 z OT HPI Discharge Note Total number of visits 1 Date of Discharge 07/22/20 z OT Inpatient AP Discharge Treatment Patient Education, Self Care/ADL Training, HEP Equipment Issued Handouts, Home Exercise Plan Treatment Goals Achieved: Yes Plan Follow Up w/ Physician, Discharge from OT DC Recommendations Family Assistance OT Status: DISCHARGED Electronically Signed eSign Date and Time Richa Cuellar OT 07/22/20 1616 Normal [facility] z OT Inpatient Evaluationon 07-22-2020 z OT Inpatient Evaluation [facility] Patient: JAVAD MARTINEZ [address] [address] MR#: [id number] OT INPATIENT EVALUATION : 74 Inpatient OT HPI Date of Service 07/22/20 Time In: 0930 Time Out: 1000 Total Treatment Time (Mins) 30 Visit Reason CERVICAL RADICULOPATHY Surgery Type/Date 50 yr old Female with PMHx OA POD 0 ADR C6 C7. Seen and examined in PACU. She is vitally stable saturating well on RA, BP 145/80. She denies upper extremity numbness, weakness, snd tingling. She denies chest pain or shortness of breath. She is alert and oriented with GAEB CTA GBAE, normal S1 S2 no sensory or motor deficits. Collar neck in place. Her corrales was removed this morning. The drain is still in place, serosanguinous content. Referral Date 07/21/20 Tx Diagnosis: CERVICALGIA Insurance Name [facility] Course 50 yr old Female with PMHx OA POD 0 ADR C6 C7. Seen and examined in PACU. She is vitally stable saturating well on RA, BP 145/80. She denies upper extremity numbness, weakness, snd tingling. She denies chest pain or shortness of breath. She is alert and oriented with GAEB CTA GBAE, normal S1 S2 no sensory or motor deficits. Collar neck in place. Her corrales was removed this morning. The drain is still in place, serosanguinous content. Past Medical/Social History Problem List Medical Problems Radiculopathy, cervical region Surgical Problems S/P cervical discectomy Living Arrangements Home Lives With Family Steps to Enter House 4 Railings Bilateral Handrails Bedroom Location 1st Floor Bathroom Location 1st Floor Shower Tub Tasks Prior to Admission Laundry, Cooking, Cleaning, Shopping Transportation Method Relies on Others Objective Precautions Cervical Collar, Cervical Spine Precaution Pain Scale 3 Pain Character Ache Pain Location Neck Equipment Peripheral IV, SCD Orientation Person, Place, Time, Situation Behavior Cooperative Sensation Within Functional Limits Tone Within Functional Limits Hand Dominance Right Coordination Coordination Within Functional Limits Proprioception Within Normal Limits ROM RUE ROM Within Functional Limits LUE ROM Within Functional Limits RLE ROM Within Functional Limits LLE ROM Within Functional Limits Strength RUE Strength 3/5 LUE Strength 3/5 RLE Strength 3/5 LLE Strength 3/5 Comments Bilateral upper extremities WFLs for participation in management of ADLs and functional mobility tasks. Outcome Measures Eris Score Eris Score Response Value Feeding Independent 10 Bathing Independent 5 Grooming Independent 5 Dressing Needs Help/Half unaided 5 Bowels Continent 10 Bladder Continent 10 Toilet Independent 10 ransfer(Bed to Chair and Back) Minor Help 10 obility (On Level Surfaces) Independent 15 tairs Independent 10 otal 90 AM-PAC Inpt Daily Activity AM-PAC Inpt Daily Activity Response Value Lower Body Clothing A Little 3 Bathing None 4 Toileting None 4 Upper Body Clothing None 4 Personal Grooming None 4 Eating Meals None 4 Total 23 Comments 10 % disability based on the Eris Index ADL Function ADL Function Upper Body Dressing Modified Independent Lower Body Dressing Modified Independent Upper Body Bathing Modified Independent Lower Body Bathing Modified Independent Toileting Modified Independent Feeding Independent Grooming Modified Independent Comments Patient is independent/modified independent with all ADLs and functional mobility tasks. Patient instructed in and performed lower body dressing/ADLs via modified techniques Transfers Transfers Supine to Sit Independent Sit to Stand Independent Stand to Sit Independent Sit to Supine Independent Bed to Chair Modified Independent Chair to Bed Modified Independent Toilet Modified Independent Rolling Modified Independent Static Sitting Balance Good Dynamic Sitting Balance Good Static Standing Balance Good Dynamic Standing Balance Good Treatment Additional Minutes of Tx Performed 10 Remained in Chair All Needs Within Reach Yes Assessment/Plan for Inpt OT DC Recommendations Family Assistance Topic #1 Rehabilitation Techniques Teaching Method: RETURN DEMONSTRATION Outcome: RETURN SKILL DEMO Comments Post Op precautions/issued packet with home going instructions and information regarding adaptive equipment and bathroom DME. Problems UE Function, ADL Skills, Activity Tolerance, Functional Mobility, Functional Balance Rehab Potential Good Treatment Tolerance Good Assessment Patient does not demonstrate additional need for skilled OT services at this time. Patient was pleasant, alert, and cooperative throughout the session. Patient Stated Goal: TO TAKE IT EASY Goals discussed with: Patient Frequency of Therapy Eval Only Duration Until Discharge Treatment Patient Education, Self Care/ADL Training Patient Status DISCHARGED Eval Completed Yes Eval Complexity Low Complexity Treatment Performed Yes Electronically Signed eSign Date and Time Richa Cuellar OT 07/23/20 1333 Normal [facility] z PT Inpatient Discharge Not [place] 07-22-2020 z PT Inpatient Discharge Note [facility] Patient: JAVAD MARTINEZ [address] [place] [address] MR#: [id number] PT INPATIENT DISCHARGE NOTE : 74 Service Date: 07/22/20 1325 z PT Inpt. HPI Discharge Note Date of Discharge 07/22/20 Start of Care Date 07/22/20 Final Date of Care 07/22/20 z PT Inpatient AP Discharge Treatment: Therapeutic Activity, Patient Education, Therapeutic Exercise, Gait Training, HEP, Neuromuscular Reeducation Equipment Issued Handouts Plan Discharge from PT Discharge Recommendations Home-No Home Health Care PT Status: DISCHARGED Electronically Signed eSign Date and Time Estefany Chatterjee PT 07/22/20 1325 Normal [facility] z PT Inpatient Evaluationon 07-22-2020 z PT Inpatient Evaluation [facility] Patient: JAVAD MARTINEZ [address] [id number] MR#: [id number] PT INPATIENT EVALUATION : 74 Service Date: 07/22/20 1327 Inpatient PT HPI Date of Service 07/22/20 Time In: 1000 Time Out: 1040 Total Treatment Time (Mins) 15 Room Number [id number] Visit Reason CERVICAL RADICULOPATHY Surgery Type: ADR C6-7 Surgery Date: 07/21/20 Referral Date 07/21/20 Tx Diagnosis: CERVICALGIA Insurance Name [facility] Course 50 Y/O PATIENT ADMITTED TO HOSP. FOR SX: 07-21-20. PT REFERRAL REC'D TO EVAL AND TX., FWB, PRECAUTIONS, HARD CERVICAL COLLAR ON,UP AD CAMRYN WITH ASST, LOG ROLL, ENC AMB/CALF/ANKLE EX'S. AT ARRIVAL SUPINE IN BED. ID D VIA NAME AND . Past Medical/Social History Problem List Medical Problems Radiculopathy, cervical region Surgical Problems S/P cervical discectomy Living Arrangements Home Lives With Family Mobility Aids None ADL Equipment Shower Chair (TUB/SH) Steps to Enter House 4 Stairs Inside House 0 Railings Bilateral Handrails Functional Level PATIENT REPORTING INDEP AMB NO AD NO RECENT FALLS. INDEP ADL'S/IADL'S. FAMILY AND ADVENTIST WILL ASST ONCE HOME. Objective Pain Pain Scale 0 Precautions Cervical, Spinal Equipment Drain, Peripheral IV, SCD, HARD CERVICAL COLLAR. Dynamic Standing Balance Good (W/WW) Orientation Person, Place, Time, Situation Behavior Cooperative Sensation Within Functional Limits Endurance Fair Posture Within Functional Limits Wound/Skin IV, DRAIN, INCISION. Fine Motor Coordination Within Functional Limits Gross Motor Coordination Minimally Impaired ROM RUE ROM: SEE OT EVAL LUE ROM: SEE OT EVAL RLE ROM: WITHIN FUNCTIONAL LIMITS LLE ROM: WITHIN FUNCTIONAL LIMITS Strength RUE Strength: SEE OT EVALUATION LUE Strength: SEE OT EVALUATION RLE Strength: 4 /5 LLE Strength: 4 /5 Outcome Measures Modified Marcell Score 0-No Symptoms AM-PAC Inpatient Mobility AM-PAC Inpatient Mobility Response Value Turn Back/Side While Flat WO Bedrails None 4 Move From Lying to Side of Bed WO Bedrails None 4 Move To/From Bed to Chair None 4 Stand Up From Chair Using Arms None 4 Walk in Hospital Room A Little 3 limb 3-5 Steps W Railing A Little 3 otal 22 Mobility Transfers Supine to Sit Independent Sit to Supine Independent Sit to Stand Independent Stand to Sit Independent Stand Pivot Independent Rolling Independent Weight Bearing Full Weight Bearing Gait Patient ambulated With Contact Guard Assist With Assistive Device Wheeled Walker For (Feet) 70' X 2 Comments PATIENT DEMO BILAT L.E. WEAKNESS BUT GAIT WAS STEADY AND DEMO GOOD H.S. AND TOE OFF W/WW. INSTRUCTED TO AMB WITH WW WHILE IN HOSP AND FAMILY TO ASST ON STEPS 1ST FEW WEEKS. Stairs Steps Up 3 Inch Steps 4 Steps Down 3 Inch Steps 4 Device Right Handrail (THERAPIST ON LEFT TO ASST.) Pattern Non-Reciprocating Assistance Required With Contact Guard Assist Comments STEADY GT Treatment Additional Minutes of Tx Performed 15 Remained in Chair All Needs Within Reach Yes Comments PATIENT EDUCATED ON PT ROLE, SERVICES, POC, DC RECOMM, FUNC MOB, BODY MECHANICS, AND PRECAUTIONS. INSTRUCTED IN THER EX AP, QUAD AND GLUTEAL SETS, ASST IN HEEL SLIDES X 10, IN SUPINE WITH GOOD RETURN DEMO.ADD'L TIME TO PERFORM STAIRCLIMBING. Assessment/Plan for Inpt PT Discharge Recommendations Home-No Home Health Care Topic #1 RESIDENTIAL LEASING MANAGER Teaching Method: BOOKLET Teaching Method: TEACHBACK Outcome: RETURN SKILL DEMO Treatment Tolerance Good Assessment Patient has no acute physical therapy needs at this time, DC from acute physical therapy. Performing all transfers, gait, and stair navigation at [facility] level or greater. Verbalizing understanding of HEP/Precautions. Patient Stated Goal: N/A Frequency of Therapy: EVAL. Patient Status DISCHARGED Eval Completed Yes Eval Complexity Low Treatment Performed Yes Electronically Signed eSign Date and Time Estefany Chatterjee PT 07/22/20 1342 Normal [facility] Internal Med Progress Noteon 07-21-2020 Internal Med Progress Note [facility] Patient: JAVAD MARTINEZ [address] [id number] MR#: [id number] PROGRESS NOTE - Internal Medicine : 74 Service Date: 07/21/20 1332 Assessment/Plan-Internal Med Be sure to note changes Be sure to note changes Electronically Signed eSign Date and Time Jorje Noyola RES Normal [facility] Internal Medicine Consultati onon 07-21-2020 Internal Medicine Consultation [facility] Patient: JAVAD MARTINEZ [address] [id number] MR#: [id number] CONSULTATION - Internal Medicine : 74 Service Date: 07/21/20 1334 History of Present Illness HPI 50 yr old Female with PMHx OA POD 0 ADR C6 C7. Seen and examined in PACU. She is vitally stable saturating at 99% on Face Mask, BP 160/80 in the context of mild-moderate pain and intraop Dexa. IM is consulted for perioperative Management. She has no upper extremity numbness, no weakness, no tingling, no dizziness, no dysphagia at the moment. She denies chest pain or shortness of breath. She is alert and oriented with GAEB CTA GBAE, normal S1 S2 no sensory or motor deficits. Collar Mask is in place. She has a corrales and a drain, surgery was uncomplicated. Medical/Surgical History Past Medical History Transfusion Status CONSERVATION Transfusion Reaction NOT APPLICABLE Allergies/Home Medications Allergies Coded Allergies: NO KNOWN ALLERGENS (07/18/20) Reconcile Medications Scheduled Medications Carisoprodol * (Soma 350mg Tablet*) 350 MG TABLET 350 MG PO BID, Ref 0 (Reported) Entered as Reported by EDUAR RIBEIRO on 07/21/20829 Last Action: Reviewed on 07/21/20830 by EDUAR RIBEIRO Ferrous Sulfate (Iron) 325 MG TABLET 325 MG PO BID, Ref 0 (Reported) Entered as Reported by RC MONTEJO on 07/18/20857 Last Action: Continued on 07/21/20 140 by JORJE NOYOLA [LIFE] TAB 1 TAB PO DAILY, Ref 0 (Reported) ENZYME BLEND-OTC Entered as Reported by EDUAR RIBEIRO on 07/21/20833 Last Action: Reviewed on 07/21/20833 by EDUAR RIBEIRO [RESTORE] TAB 1 TAB PO DAILY, Ref 0 (Reported) OTC-HEALING AND RESOURCE Entered as Reported by EDUAR RIBEIRO on 07/21/20832 Last Action: Reviewed on 07/21/20833 by EDUAR RIBEIRO [VIBE] TAB 1 TAB PO DAILY, Ref 0 (Reported) OTC-TRUE ENERGY AND CLARIFY Entered as Reported by EDUAR RIBEIRO on 07/21/20831 Last Action: Reviewed on 07/21/20834 by EDUAR RIBEIRO Scheduled PRN Medications HYDROCODONE BIT/ACETAMINOPHEN * ([place] 5-325 Tablet *) 1 EACH TABLET 1 EA PO Q4PRN PRN Pain, Ref 0 (Reported) Entered as Reported by EDUAR RIBEIRO on 07/21/20829 Last Action: Reviewed on 07/21/20830 by EDUAR RIBEIRO Miscellaneous Medications [multivitamin] (Reported) Entered as Reported by RC MONTEJO on 07/18/20 0858 Last Action: Reviewed on 07/21/20828 by EDUAR RIBEIRO Discontinued Medications [muscle relaxer] pain (Reported) Discontinued reason: Med Entered in Error Last Action: Discontinued on 07/21/20830 by EDUAR RIBEIRO [norco] pain (Reported) Discontinued reason: Med Entered in Error Last Action: Discontinued on 07/21/20830 by EDUAR RIBEIRO Review of Systems Review of Systems Constitutional Denies: Fever, Fatigue, Chills, Malaise. EENT Denies: Vision Change, Odynophagia, Nasal Congestion, Nasal Drainage. Cardiovascular Denies: Chest Pain, Pain on Exertion, Dyspnea on Exertion, Paroxysmal Nocturnal Dsyp, Palpitations. Pulmonary Denies: Pleuritic Chest Pain, Dyspnea, Cough. Physical Exam Vital Signs Vital Signs Vital Signs Verdana 4d Result Date Time Pulse Ox 96 07/21 823 B/P 147/78 07/21 823 Temp 36.0 07/21 823 Pulse 87 07/21 823 Resp 20 07/21 823 Appearance Appearance Appears well, Awake Cm: 162 Wt-K.000 BMI 40.1 Patient is Overweight Pain Scale 3 Neck Neck Normal inspection, No JVD, Supple HEENT HEENT Head atraumatic, Eyes normal inspection Respiratory Respiratory Lungs sound clear, Respirations non-labored, Symmetrical expansion CVS Cardiovascular Rate WNL, Rhythm regular, Normal heart sounds Neuro * Document results of Cranial Nerve Asmt for all pts. Neurological Alert, Oriented x 3, No motor deficit, No sensory deficit Abdomen/Pelvis Abdomen Bowel sounds present, Abdomen soft, Non-tender Extremity Extremity Normal appearance, Full ROM, Sensation intact Assessment/Plan Lab Laboratory Tests 07/21 906 Urines POC Urine HCG, Qual NEGATIVE Assessment and Plan #POD 0 ADR - EBL 300cc -VSS -Complains of some pain at the cervical region -No chest pain, no sob, no wheezes. PE: motor and sensory exam acceptable upper extremity -Drain, corrales in place -She received intraop prophylactic Abx and Dexa -No labs yet. She is on Ferratab 325 mg PO BID. 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 POSTOPERATIVE DIAGNOSIS: Massive herniation of the C6, 7 disk to the right producing severe radiculopathy. PROCEDURE PERFORMED: Anterior C6 diskectomy followed by Mobi-C arthroplasty using a size 7 x 13 mm deep implant. ASSISTANTS: Rogers. INDICATIONS: This patient has intractable radiculopathy from a massive herniation. Although she has degeneration at C5-6, there is no compressive pathology of consequence at this level. To afford her optimal improvement and cost-effective medical care, we plan to address only the C6, 7 disk space. By using an arthroplasty, we hope to stress relieve the adjacent segment. DESCRIPTION OF PROCEDURE: The patient was brought to the operating room and prepped and draped in the usual sterile orthopedic fashion. Baseline neuromonitoring was obtained. It should be noted that multimodality intraoperative neurophysiological monitoring was continuously carried out with an on-website/blog editor in a remote position in an effort to safeguard the patient. All IOM studies were performed under real-time physician supervision via Internet communication allowing continuous and immediate contact between the interpreting physician and myself. We tested SSEP, MEP, EMG, EEG, and TOF during the procedure. Once prepped and draped and properly positioned, a transverse incision was used descending sharply through skin and subcutaneous tissues. The platysma was split longitudinally. The sternocleidomastoid was retracted laterally. The strap muscles, esophagus, and trachea taken toward the midline. This exposed the disk to us. Large arterial vessel spanned the disk space. These were tied down and double tied and then electrocoagulated. We confirmed radiographically that we were at the appropriate disk. The visualization was extremely difficult because of her size. We incised the anulus and performed a complete diskectomy from uncovertebral joint to uncovertebral joint assuring ourselves that we were in the midline. A Joseph distractors were then positioned and I carefully took down the PLL. On the left side, I took it down only minimally as there was considerable epidural bleeding and we knew she had no left-sided radicular pain. On the right-sided, I took down the PLL [facility] PT NAME: JAVAD MARTINEZ MR#: [id number] [address] [place] [address] ACCT: [id number] : 74 OPERATIVE REPORT and found truly massive herniations of the C6, disk. At least 5 large fragments were removed from the foramen and from the epidural space. Once I felt that no further compressive pathology existed, we lavaged copiously and sized the patient to a size 7 x 13 Mobi-C implant. Using biplanar fluoroscopy and seeing as best as we could and using primarily clinical landmarks, we malleted this into position. Superb position was noted. We had good fit with a 7 x 13. We again lavaged, used Surgiflo in the gutters, and closed over drains by reapproximating platysma loosely with 3-0 Vicryl, subcutaneous tissues with 3-0 Vicryl, and 4-0 Vicryl was used to close the skin. Standard dressings were applied. The patient was awakened and returned to the recovery room in stable condition. There were no known intraoperative complications. MD JW CHURCHILL/ANITA/[id number] E/S: Jadiel England 09/29/20 1314 Electronically Signed [facility] PT NAME: JAVAD MARTINEZ MR#: [id number] [address] [place] [address] ACCT: [id number] : 74 OPERATIVE REPORT Normal [facility] POC UR HCGon 07-21-2020 HCG Qn Negative Normal [facility] Comment on above: Order Comment: CBN: YES Wirtz: MAIN ON BOARD QC CHECK FOR HCG OK? Y Test performed by: [facility] HCG RESULT: NEGATIVE Performed By: #### L 600.47361 #### Test performed at: [address] [address] BASIC MET PANELon 07-18-2020 Anion gap [Moles/Vol] 12 mmol/L Normal 6-18 [facility] Comment on above: Order Comment: Comme nts To Phleb: pre op in p a t Performed By: #### L 500.34309, L500.53487 #### Test performed at: [address] [address] Calcium [Mass/Vol] 9.1 mg/dL Normal 8.5-10.1 [facility] Comment on above: Order Comment: Comme nts To Phleb: pre op in p a t Performed By: #### L 500.31424, L500.75112 #### Test performed at: [address] [address] Chloride [Moles/Vol] 104 mmol/L Normal 98-107 [facility] Comment on above: Order Comment: Comme nts To Phleb: pre op in p a t Performed By: #### L 500.13558, L500.26290 #### Test performed at: [address] [address] CO2 [Moles/Vol] 27 mmol/L Normal 21-32 [facility] Comment on above: Order Comment: Comme nts To Phleb: pre op in p a t Performed By: #### L 500.41985, L500.15243 #### Test performed at: [address] [address] Creatinine [Mass/Vol] 0.993 mg/dL Normal 0.550-1.020 [facility] Comment on above: Order Comment: Comme nts To Phleb: pre op in p a t Performed By: #### L 500.95769, L500.29259 #### Test performed at: [address] [address] Glucose [Mass/Vol] 90 mg/dL Normal 70-99 [facility] Comment on above: Order Comment: Comme nts To Phleb: pre op in p a t Result Comment: Fast ing GLUCOSE reference range has been updated per (ADA) [place] [employer]'s recommendation. 11/07/2018 Performed By: #### L 500.37173, L500.77988 #### Test performed at: [address] [address] OSM 288 mosm/kg Normal 270-300 [facility] Comment on above: Order Comment: Comme nts To Phleb: pre op in p a t Performed By: #### L 500.92454, L500.29515 #### Test performed at: [address] [address] Potassium [Moles/Vol] 4.0 mmol/L Normal 3.5-5.1 [facility] Comment on above: Order Comment: Comme nts To Phleb: pre op in p a t Performed By: #### L 500.59199, L500.06974 #### Test performed at: [address] [address] Sodium [Moles/Vol] 139 mmol/L Normal 136-145 [facility] Comment on above: Order Comment: Comme nts To Phleb: pre op in p a t Performed By: #### L 500.60119, L500.84301 #### Test performed at: [address] [address] Urea nitrogen [Mass/Vol] 13 mg/dL Normal 7-18 [facility] Comment on above: Order Comment: Comme nts To Phleb: pre op in p a t Performed By: #### L 500.61557, L500.55215 #### Test performed at: [address] [address] CBC W/DIFFon 07-18-2020 BASO ABS 0.0 K/uL Normal 0.0-0.2 [facility] Comment on above: Order Comment: Comme nts To Phleb: pre op in p a t Performed By: #### L 200.29721 ####Test performed at: [address] [address] Basophils/100 WBC (Bld) 0.3 % Normal [facility] Comment on above: Order Comment: Comme nts To Phleb: pre op in p a t Performed By: #### L 200.91811 ####Test performed at: [address] [address] EOS ABS 0.6 K/uL High 0.0-0.5 [facility] Comment on above: Order Comment: Comme nts To Phleb: pre op in p a t Performed By: #### L 200.45527 ####Test performed at: [address] [address] Eosinophils/100 WBC (Bld) 6.3 % Normal [facility] Comment on above: Order Comment: Comme nts To Phleb: pre op in p a t Performed By: #### L 200.09982 ####Test performed at: [address] [address] Erythrocyte distribution width (RBC) [Ratio] 13.2 % Normal 11.5-14.5 [facility] Comment on above: Order Comment: Comme nts To Phleb: pre op in p a t Performed By: #### L [id number] ####Test performed at: [address] [address] Hematocrit (Bld) [Volume fraction] 39.8 % Normal 36.0-48.0 [facility] Comment on above: Order Comment: Comme nts To Phleb: pre op in p a t Performed By: #### L 200.24046 ####Test performed at: [address] [address] Hemoglobin (Bld) [Mass/Vol] 13.2 g/dL Normal 12.0-15.0 [facility] Comment on above: Order Comment: Comme nts To Phleb: pre op in p a t Performed By: #### L 200.76870 ####Test performed at: [address] [address] IG % 0.3 % Normal [facility] Comment on above: Order Comment: Comme nts To Phleb: pre op in p a t Performed By: #### L 200.71518 ####Test performed at: [address] [address] IG ABS 0.03 K/uL Normal 0-0.05 [facility] Comment on above: Order Comment: Comme nts To Phleb: pre op in p a t Performed By: #### L 200.87555 ####Test performed at: [address] [address] Lymphocytes (Bld) [#/Vol] 2.1 10*3/uL Normal 1.2-3.5 [facility] Comment on above: Order Comment: Comme nts To Phleb: pre op in p a t Performed By: #### L 200.60153 ####Test performed at: [address] [address] Lymphocytes/100 WBC (Bld) 23.4 % Normal [facility] Comment on above: Order Comment: Comme nts To Phleb: pre op in p a t Performed By: #### L 200.90197 ####Test performed at: [address] [address] MCH (RBC) [Entitic mass] 30.1 pg Normal 25.4-34.6 [facility] Comment on above: Order Comment: Comme nts To Phleb: pre op in p a t Performed By: #### L 200.29219 ####Test performed at: [address] [address] MCHC (RBC) [Mass/Vol] 33.2 g/dL Normal 31.5-36.5 [facility] Comment on above: Order Comment: Comme nts To Phleb: pre op in p a t Performed By: #### L 200.58789 ####Test performed at: [place] [id number] MCV (RBC) [Entitic vol] 90.7 fL Normal 79.0-98.0 [facility] Comment on above: Order Comment: Comme nts To Phleb: pre op in p a t Performed By: #### L 200.71025 ####Test performed at: [address] [address] MONO ABS 0.5 K/uL Normal 0.0-1.0 [facility] Comment on above: Order Comment: Comme nts To Phleb: pre op in p a t Performed By: #### L 200.34823 ####Test performed at: [address] [address] Monocytes/100 WBC (Bld) 5.6 % Normal [facility] Comment on above: Order Comment: Comme nts To Phleb: pre op in p a t Performed By: #### L 200.71409 ####Test performed at: [address] [address] NEUTROPHIL ABS 5.8 K/uL Normal 1.4-6.6 [facility] Comment on above: Order Comment: Comme nts To Phleb: pre op in p a t Performed By: #### L 200.93417 ####Test performed at: [address] [address] Neutrophils/100 WBC (Bld) 64.1 % Normal [facility] Comment on above: Order Comment: Comme nts To Phleb: pre op in p a t Performed By: #### L 200.66294 ####Test performed at: [address] [address] NRBC # 0.000 K/uL Normal 0-0.012 [facility] Comment on above: Order Comment: Comme nts To Phleb: pre op in p a t Performed By: #### L 200.97897 ####Test performed at: [address] [address] NRBC % 0.0 /100 WBC Normal 0-0.2 [facility] Comment on above: Order Comment: Comme nts To Phleb: pre op in p a t Performed By: #### L 200.14438 ####Test performed at: [address] [address] Platelet mean volume (Bld) [Entitic vol] 9.6 fL Normal 8.7-12.4 [facility] Comment on above: Order Comment: Comme nts To Phleb: pre op in p a t Performed By: #### L 200.98086 ####Test performed at: [address] [address] Platelets (Bld) [#/Vol] 244 10*3/uL Normal 140-440 [facility] Comment on above: Order Comment: Comme nts To Phleb: pre op in p a t Performed By: #### L 200.78475 ####Test performed at: [address] [address] RBC (Bld) [#/Vol] 4.39 10*6/uL Normal 3.5-5.5 [facility] Comment on above: Order Comment: Comme nts To Phleb: pre op in p a t Performed By: #### L 200.74416 ####Test performed at: [place] [address] [place] [address] WBC (Bld) [#/Vol] 9.1 10*3/uL Normal 3.9-11.0 [facility] Comment on above: Order Comment: Comme nts To Phleb: pre op in p a t Performed By: #### L 200.73079 ####Test performed at: [place] [address] [place] [address] CHEST PA/AP & LATERAL OR 2 V WSon 07-18-2020 CHEST PA/AP & LATERAL OR 2 VWS STUDY: CHEST PA/AP LATERAL OR 2 VWS; 07/18/2020 10:10 am INDICATION: surgeon order. COMPARISON: None. ACCESSION NUMBER(S): [id number] ORDERING CLINICIAN: Mich Wilcox FINDINGS: CARDIOMEDIASTINAL SILHOUETTE: Cardiomediastinal silhouette is normal in size and configuration. LUNGS: Lungs are clear. ABDOMEN: No remarkable upper abdominal findings. BONES: No acute osseous changes. IMPRESSION: 1. No evidence of acute cardiopulmonary process. Normal [facility] CORONAVIRUSon 07-18-2020 CORONAVIRUS Methodology: PCR Negative results do not preclude SARS-CoV-2 infection and should not be used as the sole basis for patient management decisions. Negative results must be combined with clinical observations, patient history, and epidemiological information. False-negative results may occur if the viruses are present at a level that is below the analytical sensitivity of the assay or if the virus has genomic mutations, insertions, deletions, or rearrangements or if performed very early in the course of illness. Results may be affected by the quality of the sample collected. [employer] COVID-19 Direct is only for use under the Food and Drug Administration's Emergency Use Authorization. The [employer] COVID-19 Direct Letter of Authorization, along with the authorized Fact Sheet for Healthcare Providers, the authorized Fact Sheet for Patients, and authorized labeling are available on the FDA website: https://www.fda.gov/Medi calDevices/Safety/ EmergencySituations/ucm1 19417.htm COVID-19 Negative for COVID-19 (SARS-CoV-2 RNA) Normal [facility] Comment on above: Order Comment: AGE a t Spec DON 50 Report age at specimen DON? Y First test: UNKNOWN Employed in Healthcare: UNKNOWN Symptomatic as defined by CDC: UNKNOWN Hospitalized for COVID-19? UNKNOWN ICU: UNKNOWN Resident in a Congregated Care Setting: UNKNOWN Order Date: 07/18/20 : Not Comment: SURG 07/21 COVID Testing: PRE-OP/PROCEDURE SCREEN Performed By: #### M 400.31767 #### Test performed at: [place] [address] GFR ESTIMATEon 07-18-2020 IF AMER > 60 Normal > 60 [facility] Comment on above: Order Comment: Comme nts To Phleb: pre op in p a t Result Comment: eGFR (Estimated GFR) Units of measure:mL/min/1.73 meters sq. *CALCULATION REVISED 06/03/2015;IDMS-traceable MDRD equation eGFR is derived from the reexpressed MDRD Study equation using the following parameters: serum creatinine, age, gender and race. An eGFR<60 mL/min/1.73m2 for >3 months is consistent with chronic kidney disease. Refer to KDOQI guidelines for clinical interpretation. Performed By: #### L 500.13651, L500.80545 #### Test performed at: [place] [address] IF non-AFR AMER 60 Normal > 60 [facility] Comment on above: Order Comment: Comme nts To Phleb: pre op in p a t Performed By: #### L 500.74972, L500.02663 #### Test performed at: [place] [address] GLYCO HEMOon 07-18-2020 HbA1c (Bld) [Mass fraction] 5.3 % Normal [facility] Comment on above: Order Comment: Comme nts To Phleb: pre op in p a tSpecimen Comment: bmi Result Comment: Michelle guillory Diagnosis HbA1c (%) --------- Diabetic > 6.4 Prediabetes 5.7-6.4 Normal < 5.7 Performed By: #### L 500.76584 ####Test performed at: [place] [address] H & Zachary 07-18-2020 H & P [facility] Patient: JAVAD MARTINEZ [address] [place], [place] [id number] MR#: [id number] HISTORY and PHYSICAL : Service Date: 07/18/20 0954 HPI/Past Med Surg Hx/Fam Soc HPI Primary Care Physician Information Source PATIENT Language Barrier No Chief Complaint cervical radiculopathy History of Present Illness cervical radiculopathy pain and right arm stiffnes/loss of use of arm began approx 5 weeks ago no known injury pain /10 with medication increases with use pain also in right shoulder pain interfers with sleep and activity last examination by dr england approx 9 days ago denies changes plan: anterior cervical disectomy with mobi C or LDR or trabec metal with plate with dr england PMH/PSH Past Medical History Reports Psych Problems, Reports Arthritis, Denies Pulmonary Disease, Denies Emphysema, Denies Asthma, Denies Heart Disease, Denies Hx CHF, Denies Hypertension, Denies Kidney Disease, Denies Immunocompromised, Denies GI Problems, Denies CVA/TIA, Denies Seizures, Denies Hepatitis, Denies Cancer Diabetes NO PMH Other/Comment cervical radiculopathy morbid obese bmi 40.1 depression/anxiety not currently on medication iron def aanemia osteoarthritis denies dental pain/infection/loose teeth denies sleep apnea has not been tested denies apnea/daytime tiredness/ with infrequent snoring ( present and comfirms ) ht 5 ft 4 in wt 106 kg bmi 40.1 asa 2 stopbang 1 (bmi) mallampati exam deferred Surgical History Reports Faye, Denies Pacemaker PSH Other/Comment laparoscopic cholecystectomy ectopic surgery x 3 ovarian cyst wisdom teeth extraction denies other surgery no known family issues with anesthesia pt claimes slow to wake up post surgery Transfusion Status CONSERVATION (will take blood if needed) Transfusion Reaction NOT APPLICABLE Family/Social Family History both parents Smoking Status NEVER SMOKER Alcohol Use No Drug Use No Opioid Assessment Naive less than 30mme/day FEMALE Opioid Risk Tool Total/Score 0 MALE Opioid Risk Tool Total/Score 0 Risk Stratification LOW RISK (Score <=3) Occupation n a Living Arrangements SINGLE FAMILY HOME Advance Directives Patient has Advance Directives NO Review of Systems Review of Systems General (Constitutional) Denies: Fever, Chills, Weakness. Existing infection before surg No General Comment denies fever cold flu Eyes Reports Wears Glasses HEENT Denies: Sore throat, Dental problems, Wears dentures, Hearing loss. HEENT Comment glasses Pulmonary Denies: Asthma, Sleep apnea. Pulmonary Comment denies Cardiac Denies: History of PA, History of Cardiac Stents. Cardiac Comment denies Gastrointestinal Denies: Heartburn. Gastrointestinal Comment morbid obese bmi 40.1 Urologic Denies: Hx Kidney stones. Urologic Comment denies uti LMP lmp 07/16/20-currently g 10 p 6 vag del x 6 Gynecological Comment lmp currently g 10 p 6 vag del x 6 vag del x 6 Musculoskeletal Reports: Arthralgias, Back pain. Musculoskeletal Comment osteoarthritis cervical radiculopathy Endocrine Denies: Diabetes, Thyroid disease, Elevated cholesterol. Endocrine Comment denies Hematologic Reports: Hx of Anemia. Denies: Hx Blood clot in legs, Hx Blood clot in lungs. Hematologic Comment iron def anemia Skin NEGATIVE: Rashes. Physical Exam Vital Signs Vital Signs Vital Signs Verdana 4d Result Date Time Pulse Ox 96 07/18 0859 B/P 146/68 07/18 859 Temp 36.8 07/18 859 Pulse 82 07/18 0859 Resp 18 07/18 0859 Appearance Appearance Appears well, Awake, Alert Comment claimes to feel well with cervical radiculopathy (pt appears uncomfortable due to cervical pain-issues) Neck Neck Full range of motion, No carotid bruit Add Neck Comment pt moves as directed appears uncomfortable due to cervical pain full exam deferred to dr samanta HOPPER HEENT Eyes normal inspection, PERRLA, Hearing grossly normal Add HEENT Comment eoms intact perrla oral cavity exam deferred denies symptoms Mallampati Classification exam deferred Respiratory Respiratory Lungs sound clear, Respirations non-labored Lung Sounds by Lobe L LOWER LOBE Clear, L UPPER LOBE Clear, R LOWER LOBE Clear, R UPPER LOBE Clear Add Respiratory Comment lungs clear CVS Cardiovascular Rate WNL, Rhythm regular, Normal heart sounds Pulses 2+ L Radial, 2+ R Radial Neuro Neurological Alert, Oriented x 3 Mental Status Oriented x 3 Add 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 within normal limits right arm in sling/pt claimes pain-stiffness from cervical issues full exam deferred to dr england Back/Spine Back/Spine Normal spinal curvature Add Back/Spine Comment oa pain full exam deferred to dr england Abdomen/Pelvis Abdomen Bowel sounds present, Abdomen soft, Non-tender Extremity Extremity Normal appearance, rt arm in sling Add Extremity Comment right arm in sling dur to pain/stiffness Skin Skin Color normal, Skin warm, dry Allergies/Home Medications Allergies Coded Allergies: NO KNOWN ALLERGENS (07/18/20) Reconcile Medications Scheduled Medications Ferrous Sulfate (Iron) 325 MG TABLET 325 MG PO BID, Ref 0 (Reported) Entered as Reported by RC MONTEJO on 07/18/20857 Last Action: Reviewed on 07/18/20857 by RC MONTEJO Miscellaneous Medications [multivitamin] (Reported) Entered as Reported by RC MONTEJO on 07/18/20857 Last Action: Reviewed on 07/18/20857 by RC MONTEJO [muscle relaxer] pain (Reported) Entered as Reported by RC MONTEJO on 07/18/20856 Last Action: Reviewed on 07/18/20857 by RC MONTEJO [norco] pain (Reported) Entered as Reported by RC MONTEJO on 07/18/20856 Last Action: Reviewed on 07/18/20857 by RC MONTEJO Diagnostics/Assessment AND Plan Labs/Diagnostics Imaging Recent Impressions RADIOLOGY - CHEST PA/AP AND LATERAL OR 2 VWS 07/18 1000 Report Impression - Status: SIGNED Entered: 07/18/2020 1014 IMPRESSION: 1. No evidence of acute cardiopulmonary process. Impression By: TOSHIA Severino MD General Comments claimes to feel well with cervical radiculopathy Assessment and Plan Assesment and Plan cervical radaiculopathy see above pmh for assesment plan:anterior cervical discectomy and Mobi C or LDR or Trabec metal with plates with dr jose england asa 2 mallampati exam deferred stopbang 1 Problem List Medical Problems Radiculopathy, cervical region Code Status FULL CODE Patient has signed directives No ASA Classification Mild Systemic Disease :Surgeon Attestation Surgeon Attestation The H AND P was reviewed, the patient was examined and [ ] No Change has occurred in the patient's condition since the H AND P was completed. [ ] The following changes have occurred in the patient's condition: Physician Signature: Da te/Time: Electronically Signed eSign Date and Time Mich Wilcox 07/18/20 1027 Jadiel England [facility] PROTIMEon 07-18-2020 INR Coag (PPP) [Relative time] 0.94 {INR} Normal 0.00-1.20 [facility] Comment on above: Order Comment: Comme nts To Phleb: pre op in p a tSpecimen Comment: surgeon orderList patient's anticoagulants for PT: NONE SPECIFIEDList patient's anticoagulant for PTT: NONE SPECIFIED Result Comment: Beau mmended therapeutic range is an INR of 2.0-3.0 except for prevention of recurrent acute PA and mechanical prosthetic heart valve where an INR of 2.5-3.5 is recommended. Performed By: #### L 300.61213, L300.25106 ####Test performed at: [place] [address] PT Coag (PPP) [Time] 10.1 s Normal 9.0-12.7 [facility] Comment on above: Order Comment: Comme nts To Phleb: pre op in p a tSpecimen Comment: surgeon orderList patient's anticoagulants for PT: NONE SPECIFIEDList patient's anticoagulant for PTT: NONE SPECIFIED Performed By: #### L 300.04554, L300.95185 ####Test performed at: [place] [id number] PTTon 07-18-2020 aPTT Coag (Bld) [Time] 26.5 s Normal 23.7-32.1 [facility] Comment on above: Order Comment: Comme nts To Phleb: pre op in p a tSpecimen Comment: surgeon orderList patient's anticoagulants for PT: NONE SPECIFIEDList patient's anticoagulant for PTT: NONE SPECIFIED Performed By: #### L 300.44148, L300.08273 ####Test performed at: [place] [address] UA COMPLETEon 07-18-2020 Appearance (U) CLEAR Normal CLEAR [facility] Comment on above: Order Comment: Comme nts To Phleb: pre op in p a tSpecimen Comment: surgeon order Performed By: #### L 600.90581 ####Test performed at: [place] [address] Bilirubin [Mass/Vol] Negative Normal NEGATIVE [facility] Comment on above: Order Comment: Comme nts To Phleb: pre op in p a tSpecimen Comment: surgeon order Performed By: #### L 600.24425 ####Test performed at: [place] [address] BLOOD >=1.0 mg/dL Critically abnormal NEGATIVE [facility] Comment on above: Order Comment: Comme nts To Phleb: pre op in p a tSpecimen Comment: surgeon order Performed By: #### L 600.36765 ####Test performed at: [place] [address] Color (U) YELLOW Normal YELLOW [facility] Comment on above: Order Comment: Comme nts To Phleb: pre op in p a tSpecimen Comment: surgeon order Performed By: #### L 600.98212 ####Test performed at: [address] [address] EPITH CELLS 0-2 Normal 0-10 [facility] Comment on above: Order Comment: Comme nts To Phleb: pre op in p a tSpecimen Comment: surgeon order Performed By: #### L 600.56736 ####Test performed at: [address] [address] Glucose [Mass/Vol] Negative Normal NEGATIVE [facility] Comment on above: Order Comment: Comme nts To Phleb: pre op in p a tSpecimen Comment: surgeon order Performed By: #### L 600.41786 ####Test performed at: [address] [address] KETONE Negative Normal NEGATIVE [facility] Comment on above: Order Comment: Comme nts To Phleb: pre op in p a tSpecimen Comment: surgeon order Performed By: #### L 600.08507 ####Test performed at: [address] [address] LEUK ESTERASE Negative Normal NEGATIVE [facility] Comment on above: Order Comment: Comme nts To Phleb: pre op in p a tSpecimen Comment: surgeon order Performed By: #### L 600.77678 ####Test performed at: [address] [address] Nitrite Ql (U) Negative Normal NEGATIVE [facility] Comment on above: Order Comment: Comme nts To Phleb: pre op in p a tSpecimen Comment: surgeon order Performed By: #### L 600.11597 ####Test performed at: [address] [address] Protein [Mass/Vol] Negative Normal NEGATIVE [facility] Comment on above: Order Comment: Comme nts To Phleb: pre op in p a tSpecimen Comment: surgeon order Performed By: #### L 600.60468 ####Test performed at: [address] [address] RBC (Bld) [#/Vol] 51-75 Critically abnormal 0-3 [facility] Comment on above: Order Comment: Comme nts To Phleb: pre op in p a tSpecimen Comment: surgeon order Performed By: #### L 600.86311 ####Test performed at: [place] [id number] SPEC GRAV 1.013 Normal 1.005-1.030 [facility] Comment on above: Order Comment: Comme nts To Phleb: pre op in p a tSpecimen Comment: surgeon order Performed By: #### L 600.12628 ####Test performed at: [place] [address] UA ASC ACID Negative Normal [facility] Comment on above: Order Comment: Comme nts To Phleb: pre op in p a tSpecimen Comment: surgeon order Performed By: #### L 600.69826 ####Test performed at: [place] [id number] UA PH 6.0 Normal 5.0-8.0 [facility] Comment on above: Order Comment: Comme nts To Phleb: pre op in p a tSpecimen Comment: surgeon order Performed By: #### L 600.22596 ####Test performed at: [place] [id number] UROBIL NORMAL Normal NORMAL [facility] Comment on above: Order Comment: Comme nts To Phleb: pre op in p a tSpecimen Comment: surgeon order Performed By: #### L 600.56891 ####Test performed at: [address] [address] WBC (Bld) [#/Vol] 6-10 Critically abnormal 0-5 [facility] Comment on above: Order Comment: Comme nts To Phleb: pre op in p a tSpecimen Comment: surgeon order Performed By: #### L 600.69378 ####Test performed at: [place] [address] [place] [address] MR CERVICAL SP WO CONTRASTon 06-25-2020 MR CERVICAL SP WO CONTRAST [facility] [address] [place] [id number] Patient: JAVAD MARTINEZ Phone#: : 1970 Age: 49 Gender: F Pt. Type: Out Account: [id number] Location: Ordering: JUAN M CURRIE Exam Date: 06/25/2020/11:03 Family Phys: Charge Code: 453001 Physician: Isabella Order #: [id number] DLP Dose#: PROCEDURE: MRI CERVICAL SPINE WITHOUT CONTRAST COMPARISON: None. INDICATIONS: Disc herniation TECHNIQUE: A variety of imaging planes and parameters were utilized for visualization of suspected pathology. FINDINGS: CRANIOCERVICAL AREA: Normal foramen magnum with no Chiari malformation. PARASPINAL AREA: Normal with no visible mass. BONES: No fracture, pars defect, or osseous lesion. CORD: Normal caliber, contour, and signal intensity. CERVICAL DISC LEVELS: C2-C3: No significant disc/facet abnormality, spinal stenosis, or foraminal stenosis. C3-C4: Bony hypertrophy is present at the articular facettes. There is mild to moderate narrowing of the foramina bilaterally. There is mild broad-based disc bulging to the left. C4-C5: Mild annular disc bulging is present. There is bony hypertrophy at the articular facettes greater on the right than the left. There is moderate to severe right foraminal narrowing. There is moderate to severe left foraminal narrowing. C5-C6: Disc space narrowing is present. There is annular disc bulge. Broad-based focal bulge to the right is present with effacement of the anterior aspect of the thecal sac. There is mild narrowing of the left neural foramen. The right foramen is patent. C6-C7: There is mild disc space narrowing. There is a sequestered disc fragment to the right with impression on the anterior right lateral aspect of the thecal sac. The fragment is 8 x 7 x 7 millimeters. There is mild narrowing of the spinal canal. C7-T1: No significant disc/facet abnormality, spinal stenosis, or foraminal stenosis. CONCLUSION: 1. Sequestered disc fragment is present to the right of midline at the C6-7 level. There is impression and displacement of the thecal sac posteriorly to the left. 2. Bony hypertrophy is present at the facets at the C3-4 and C4-5 levels with foraminal narrowing. [place] [address] Patient: JAVAD MARTINEZ Phone#: : 1970 Age: 49 Gender: F Pt. Type: Out Account: [id number] Location: Ordering: JUAN MAlok CURRIE Exam Date: 06/25/2020/11:03 Family Phys: Charge Code: [id number] Physician: Isabella Order #: [id number] DLP Dose#: Dictated by: Jen Jiang MD on 06/25/2020 at 13:30 Approved by: Jen Jiang MD on 06/25/2020 at 13:42 Normal [facility] Vital Signs Date Time Vital Sign Value Performing Clinician Denia messina 01-22-2025 15:53-0400 Body temperature 98.4 [degF] Agatha Avendano [employer]AR[employer] OPERATOR-C Work Phone: [facility] 01-22-2025 15:53-0400 Diastolic blood pressure 67 mm[Hg] Agatha Avendano [employer]ARTH AUGER OPERATOR-C Work Phone: [facility] 01-22-2025 15:53-0400 Heart rate 74 /min Agatha Avendano [employer]AR[employer] AUGER OPERATOR-C Work Phone: [facility] 01-22-2025 15:53-0400 Respiratory rate 15 /min Agatha Avendano [employer]AR[employer] AUGER OPERATOR-C Work Phone: [facility] 01-22-2025 15:53-0400 SaO2% (BldA) [Mass fraction] 99 % Agatha Avendano [employer]AR[employer] AUGER OPERATOR-C Work Phone: [facility] 01-22-2025 15:53-0400 Systolic blood pressure 135 mm[Hg] Agatha Avendano EAR[employer] AUGER OPERATOR-C Work Phone: [facility] 01-22-2025 12:30-0400 Body height 162.56 cm Agatha Juan Alberto [employer]AR[employer] AUGER OPERATOR-C Work Phone: [facility] 01-22-2025 12:30-0400 Body mass index (BMI) [Ratio] 37.5 kg/m2 Agatha Juan Alberto [employer]AR[employer] AUGER OPERATOR-C Work Phone: [facility] 01-22-2025 12:30-0400 Body weight 99.2 kg Agatha Popcalin [employer]AR[employer]ER OPERATOR-C Work Phone: [facility] 04-20-2022 12:03-0400 Diastolic blood pressure 70 mm[Hg] [facility] Work Phone: 04-20-2022 12:03-0400 Heart rate 70 /min [facility] Work Phone: 04-20-2022 12:03-0400 Respiratory rate 18 /min [facility] Work Phone: 04-20-2022 12:03-0400 SaO2% (BldA) [Mass fraction] 97 % [facility] Work Phone: 04-20-2022 12:03-0400 Systolic blood pressure 134 mm[Hg] [facility] Work Phone: 04-19-2022 18:39-0400 Body temperature 97.3 [degF] [facility] Work Phone: 04-19-2022 12:47-0400 Inhaled oxygen flow rate 2 L/min [facility] Work Phone: 04-19-2022 11:25-0400 Body height 162.56 cm [facility] Work Phone: 04-19-2022 11:25-0400 Body mass index (BMI) [Ratio] 31.3 kg/m2 [facility] Work Phone: 04-19-2022 11:25-0400 Body weight 82.8 kg [facility] Work Phone: Encounters Encounter Date Encounter Type Care Provider Facility Start: 01-22-2025 End: 01-22-2025 Emergency department patient visit Agatha Avendano [employer]AR[employer] AUGER OPERATOR-C Work Phone: -Emergency Department Work Phone: Start: 04-19-2022 End: 04-20-2022 Emergency department patient visit [facility]-Emergency Department Start: 06-25-2020 End: 06-25-2020 Patient encounter procedure JUAN M S ROSEY [facility] Procedures Date Procedure Procedure Detail Performing Clinician Start: 01-22-2025 Estimated creatinine clearance Agatha Avendano EARTH AUGER OPERATOR-C Work Phone: Start: 01-22-2025 Plain chest X-ray Pablo Avendano EARTH AUGER OPERATOR-C Work Phone: Start: 07-18-2020 Electrocardiogram Viral antigen assay Plan of Treatment Date Care Activity Detail Author Start: 01-22-2025 [facility] Start: 01-22-2025 [facility] Start: 04-19-2022 Consultation [facility] Work Phone: Patient Education ED Chest Pain, Uncertain Cause [facility] Work Phone: Patient referral [facility] Work Phone: Payers Date Payer Category Payer Unknown [id number] Unknown Unknown [facility] [employer] [employer] 101 [id number] Unknown [facility] [employer] [id number] Social History Date Type Detail Facility Start: 04-19-2022 Tobacco smoking status NHIS Unknown if ever smoked [facility] Work Phone: Start: 1970 Sex Assigned At Female [facility] Start: 01-22-2025 Tobacco smoking status NHIS Never smoked tobacco (finding) [facility] NEGATED: Highlighted row [facility] Work Phone: Mental Status Date Assessment Result Facility 01-22-2025 Cognitive function Level Of Cons ciousness Awake;Alert [facility] Work Phone: Discharge summary 01-22-2025 Note Date & Type Note Facility 01-22-2025 Discharge summary [facility] Discharge summary 01-22-2025 Note Date & Type Note Facility 01-22-2025 Discharge summary Note Date/Time January 22, 2025 3:49pm [facility] Medical Records Department [address] [place] [address] Emergency Department Summary 01/22/25 MR#: [id number] Acct: [id number] Name: JAVAD MARTINEZ Rep #:[id number] : 1970 54 From: Ramón Lee MD PCP: Agatha Avendano NP-C Status:RE G ER Location: ED HPI History of Present Illness Chief Complaint: Chest Pain Informant: patient and spouse/S.O. Onset/Context/Timing Onset: Today and Hours Activity at onset: gradual Timing: Continuous Quality: Positive for Aching and Pain Location: Left Chest Current Severity: Mild Maximum Severity: Mild Worsened By: Exertion Relieved By: Nothing Associated Symptoms: Positive for Dyspnea and Lightheadedness; Negative for Nausea, Vomiting, Cough, Fever, Acid Reflux or Palpitations Narrative Narrative: 54-year-old female history depression. No cardiac history. Was picking strawberries today and had chest pain. States this has been going on for the last hour. States she has had increased fatigue. Pain goes into her left arm. She has had some mild shortness of breath. No history of DVT or PE. No recent travel surgery immobilization. No calf pain or swelling. No hemoptysis. No significant family history of cardiac disease other than her mom at 78. Patientis had no prior cardiac testing. Prior Similar Symptoms: No Recent Illness/Hospitalization: No CVD Risk Factors: Negative for Hypertension, Diabetes, Hypercholesterolemia, Family History 1' </=55 or Smoking PE Risk Factors: Negative for Recent Travel/Surgery, Recent Immobilization, Prior DVT or PE, Cancer or OCP + Smoking + >/=35 TAD Risk Factors: Negative for Marfan's Syndrome PFSH PFSH Home Medications ?Medication ?Instructions ?Recorded ?Last Taken ?Type sertraline 50 mg tablet 50 mg PO QHS 04/19/22 Unknow n History Allergy/AdvReac Type Severity Reaction Status Date / Time No Known Allergies Allergy Verified 01/22/25 12:33 Surgical History Previous back surgery Social History Smoking Status: Never smoker ROS ROS ED ROS Narrative Chest discomfort today picking strawberries. Dyspneic. Constitutional Constitutional ED: Denies chills or fever(s) Eyes Eyes: Reports none ENT ENT ED: Denies ear pain Cardiovascular Cardiovascular: Reports as per HPI and chest pain; Denies palpitations or racingheartbeat Respiratory/Chest Respiratory/Chest: Reports dyspnea Gastrointestinal Gastrointestinal: Denies abdominal pain Genitourinary Genitourinary ED: Denies dysuria or hematuria Musculoskeletal Musculoskeletal: Denies arthralgias Integumentary Denies abscess or Abrasions Neurologic Neurologic: Denies headache(s) Psychiatric Psychiatric: Denies anxiety or depression Endocrine Endocrinology: Denies cold intolerance Hematologic/Lymphatic Hematologic/Lymphatic: Denies easy bleeding, easy bruising or lymphadenopathy Allergic/Immunologic Allergic/Immunologic ED: Denies mouth swelling, tongue swelling or urticaria EXAM Physical Exam Narrative Exam Narrative: 54-year-old female sitting upright in bed. Vital signs stable afebrile. Pulse ox 100% on room air no hypoxia. at bedside. H EENT exam pupils round react light. Moist mucous membranes. No trauma. Neck nontender no JVD. No lymphadenopathy. Lungs clear to auscultation bilaterally. Heart regular rhythmno murmur. Chest wall and ribs are nontender. Heart rate about 80. Abdomen soft nondistended normal bowel sounds without peritoneal signs. She has mild left upper quadrant tenderness. No rebound guarding rigidity. No hernia or mass. Right upper quadrant unremarkable. Soft. Positive bowel sounds. Movingall [address] 5-[address] passenger firer strength. Dorsi plantarflexion intact. Calves arenontender without edema or cords. Equal symmetric radial pulses. Back nontender. Neurologically patient awake alert. Answering questions following commands. No focal motor deficits. Const Vital Signs: 01/22/25 12:30 01/22/25 13:10 01/22/25 13:29 Temperature 98.4 F Temperature Source Oral Pulse Rate 84 71 Respiratory Rate 18 15 Blood Pressure 135/67 H Blood Pressure Mean 89 Pulse Ox 100 100 100 Oxygen Delivery Method Room Air Room Air Room Air 01/22/25 14:00 01/22/25 15:00 Temperature Temperature Source Pulse Rate 69 74 Respiratory Rate 13 15 Blood Pressure Blood Pressure Mean Pulse Ox 98 99 Oxygen Delivery Method Room Air Room Air Positive well nourished and well developed; Negative for cachectic, contracturesor unkempt General Appearance ED: well developed and NAD; Negative for unkempt, cachectic, contractures or pallor Nutritional Appearance: Negative for cachectic HEENT Reports moist mucous membranes normocephalic and atraumatic; Negative for trauma or tenderness Eyes EOMs intact bilaterally General Eye ED: Negative for pale conjunctiva or scleral icterus Neck no lymphadenopathy, supple and no JVD General: Negative for tenderness Chest Wall inspection of chest normal and palpation of chest normal Chest: Negative for tenderness Resp normal respiratory effort and clear to auscultation bilaterally Effort and Inspection: Negative for respiratory distress Auscultation: Negative for rales, rhonchi, wheezes or diminished lung sounds Cardio regular rate, regular rhythm, S1 normal heart sound, S2 normal heart sound and no murmurs Peripheral Pulses: pulses 2+ throughout GI normal to inspection, nondistended, normoactive bowel sounds, soft to palpation,non-tender, non-distended and no masses Back/Spine no CVA tenderness and no thoracic nor lumbar tenderness General Back: Negative for CVA tenderness Cervical Spine: Negative for cervical spine tenderness Extremity normal to inspection General Extremety ED: Negative for edema, pulses abnormal or tenderness General Extremity: Negative for edema or pulses abnormal Neuro oriented x3 and CN's II-XII intact bilaterally Sensorium / Orientation: awake, alert, oriented to person, oriented to place andoriented to time; Negative for confused, lethargic or stuporous Motor Exam: strength 5/5 throughout; Negative for general weakness or strength abnormal Psych mental status grossly normal Appearance: Negative for unkempt Attitude: No agitated Mood & Affect: Negative for depressed, anxious or tearful Skin no rashes or lesions noted and no wounds General Skin Exam: Negative for jaundice or pallor Rashes: No rashes noted Trauma: Negative for abrasion, laceration or puncture MDM MDM MDM Narrative Medical decision making narrative: 54-year-old female with chest discomfort today while picking strawberries. No cardiac history. No DVT or PE history or risk factors. No prior cardiac workup. She is never had a stress test or heart cath. She undergo a cardiac workup today. Repeat exam patient is doing well at 3:33 PM. 2-hour troponin returned it was less than 6. The initial was 6. Patient be discharged home with outpatient follow-up for further evaluation. The shoulder pain she is having is reproducible and appears to be musculoskeletal. History & Record Review Discussion w/independent historian: Patient Lab Data Attestation: I reviewed the patient's lab results. Lab results narrative: CBC shows a white count 8.9. H&H 12 and 36. Platelets 256. Electrolytes show sodium 138 gap 13. Normal BUN of 9 creatinine 0.8. Glucose 101. Liver enzymes normal. Lipase 23. Initial troponin 6. 2-hour troponin less than 6. Labs: Laboratory Results - last 24 hr 01/22/25 01/22/25 13:15 15:09 WBC 8.9 RBC 4.15 L Hgb 12.4 Hct 36.3 L MCV 87.5 MCH 29.9 MCHC 34.2 RDW Std Deviation 43.4 RDW Coeff of Karie 13.6 Plt Count 256 MPV 9.5 Immature Gran % (Auto) 0.300 Neut % (Auto) 75.8 H Lymph % (Auto) 17.0 L Grant % (Auto) 5.8 Eos % (Auto) 0.9 Baso % (Auto) 0.2 Absolute Neuts (auto) 6.8 Absolute Lymphs (auto) 1.52 Nucleated RBC % 0 Sodium 138 Potassium 3.4 Chloride 103 Carbon Dioxide 22.7 Anion Gap 13 BUN 9 Creatinine 0.85 Estim Creat Clear Calc 88.61 Est GFR (MDRD) Non-Af 82 BUN/Creatinine Ratio 10.6 Glucose 101 H Calcium 9.2 Total Bilirubin 0.49 Direct Bilirubin 0.20 AST 15 ALT 9 Alkaline Phosphatase 63 Troponin T High Sens 6 Troponin T Hi Sens 2 Hr < 6 Total Protein 7.3 Albumin 3.7 Globulin 3.6 Lipase 23 Radiography Chest X-Ray - ED: 1 View, Read by ED Physician, Read by Radiologist, Normal, Heart, Lungs, Mediastinum, Bony Structures, No Acute Disease and Chronic Changes Diagnostic Testing: Clinical Impression(s) from Imaging Studies Chest X-Ray 01/22/25 13:10 IMPRESSION: No Acute Findings. Reading Location: [facility]- Chest x-ray, portable, single view, interpreted by myself and radiologist shows no acute abnormality. Normal cardiac silhouette. Normal mediastinum. Normal lung handy. No acute process. Rhythm Strip Rhythm Strip: Sinus Rhythm Rate: 84 Ectopy: None EKG Initial EKG: Attestation: I personally reviewed and interpreted this EKG as follows: Interpretation: Sinus Rhythm Comments: Normal sinus rhythm rate 84. Nonspecific ST depression in V4 5 and 6. However that is unchanged from prior EKG from April 2022 Prior EKG tracings: available for review Prior: Unchanged Discharge Plan Triage Chief Complaint: Chest Pain ED Provider: Ramón Lee Dx/Rx/DC Orders Clinical Impression: Atypical chest pain Instructions: ED Chest Pain, Uncertain Cause Prescriptions: No Action sertraline 50 mg Tablet 50 mg PO QHS Primary Care Provider: Agatha Avendnao NP Referrals: Agatha Avendano NP, [employer] AUGER OPERATOR-C [Primary Care Provider] - As soon as possible Activity Restrictions/Additional Instructions: Follow-up with your primary care provider. Discuss with them getting an outpatient stress test to further evaluate your heart. Your labs today were normal. Print Language: Latvian Disposition Disposition: Home, Self Care What to do if you have Problems For any increased pain, shortness of breath, bleeding, nausea or vomiting, chestpain, or any unexpected problems, contact your Primary Care Provider. Call [facility] ([phone]) or report to the closest Emergency Room. Call 911 if necessary. 01/22/25 1544 <Electronically signed by Ramón Lee MD> Cosigner Signature (if applicable): CC: EARTH AUGER OPERATOR-C Agatha Avendano ~ Signed [facility] Work Phone: Radiology Diagnostic study note 01-22-2025 Note Date & Type Note Facility 01-22-2025 Radiology Diagnostic study note [facility] Imaging Services [address] [place] [address] Chest 1 View (Portable) MR#: [id number] Acct: [id number] Name: MICHELLEJAVAD Rep #: [id number] : 1970 F 54 From: Zander Bran MD PCP: Agatha Avendano, EAR[employer] AUGER OPERATOR-C Status: [place] E ER Study:Chest 1 View (Portable) Date of Exam: 01/22/25 Exam# [id number] Ordering Dr: Corrie Lee MD PROCEDURE: CHEST 1 VIEW (PORTABLE) 01/22/2025 REASON FOR EXAM: CHEST PAIN TECHNIQUE: Frontal view of the chest. COMPARISON: None FINDINGS: Hardware: EKG electrodes are seen. Prior fusion in the lower cervical spine. Heart: Cardiac and mediastinal contours are stable. Lungs: The lungs are clear. Bones: Degenerative changes are identified within the thoracic spine. Other: RAD/Chest 1 View (Portable) IMPRESSION: No Acute Findings. Reading Location: [place] [address] CC: EARTH AUGER OPERATOR-C Agatha Avendano; Dr. Ramón Lee MD ~ [place]: Signed [facility] Evaluation note Note Date & Type Note Facility Evaluation note No assessment information availa ble [facility] Work Phone: Hospital Discharge instructions Note Date & Type Note Facility Hospital Discharge instructions Additional Instructions Follow-up with your primary care provider. Discuss with them getting an outpatient stress test to further evaluate your heart. Your labs today were normal. [facility] Work Phone: Reason for referral (narrative) Note Date & Type Note Facility Reason for referral (narrative) No reason for referral information available [facility] Work Phone: Summary Purpose Family History No Family History Records FoundNo Family History Records FoundNo Family History Records FoundNo Family History Records Found Advance Directives Advance Directive Response Recorded Date/ Time Living Will No April 19 022 11:27am Power of Computer Programming Manager No April 19, 2022 11:27am Advance Directive Response Recorded Date/ Time Do you have a Healthcare Power of Computer Programming Manager? No January 22, 2025 12:34pm Chief Complaint and Reason for Visit Chief Complaint ANXIETY Chief Complaint Admit Date CP January 22, 2025 12:2 8pm Additional Source Comments INFORMATION SOURCE (unrecogn ized section and content) DATE CREATED AUTHOR 06/25/2020 [facility] DATE CREATED AUTHOR AUTHOR'S ORGANIZ ATION 09/30/2020 [facility] DATE CREATED AUTHOR AUTHOR'S ORGANIZ ATION 04/24/2022 [facility] DATE CREATED AUTHOR AUTHOR'S ORGANIZ ATION 04/24/2022 [facility] Goals (unrecognized section and content) Goals may be documented in a n alternate sectionGoals may be documented in an alternate section Care Teams (unrecognized sec tion and content) Team Status: Active Member Role Status Dates Agatha Avendano EARTH AUGER OPERATOR, EAR[employer] AUGER OPERATOR-C Primary Care Provider Activ e Team Status: Inactive Member Role Status Dates Agatha Avendano EARTH AUGER OPERATOR, EARTH AUGER OPERATOR-C Primary Care Provider Activ e Start: January 22, 2025 End: January 22, 2025 Dr. Ramón Lee MD Emergency Provider Active S tart: January 22, 2025 End: January 22, 2025 FOR RECORDS PERTAINING TO PATIENTS WHO ARE OR HAVE BEEN ENROLLED IN A CHEMICAL DEPENDENCY/SUBSTANCEABUSE PROGRAM, SOME INFORMATION MAY BE OMITTED. This clinical summary was aggregated from multiple sources. Caution should be exercised in using it in the provision of clinical care. This summary normalizes information from multiple sources, and as a consequence, information in this document may materially change the coding, format and clinical context of patient data. In addition, data may be omitted in some cases. CLINICAL DECISIONS SHOULD BE BASED ON THE PRIMARY CLINICAL RECORDS. [employer] provides no warranty or guarantee of the accuracy or completeness of information in this document.
== END 2025-01-22 15:57 | disposition home or self-care (01) ==
PROVIDERS: Emergency Provider Emergency Medicine; PCP Nurse Practitioner Family; Visit Provider Emergency Medicine
DX: R07.89 Other chest pain (principal)
CPT/HCPCS: 71045; 80048; 80076; 83690; 84484; 85025; 93005; 99285; A4216